=== PATIENT | female | born 1950 | race Hispanic/Latino ===

== ENCOUNTER 2018-01-03 16:27 | Emergency (ER) | payer MEDICARE, OTHER ==
[2018-01-03 18:00] LABS: BASOPHILS % (AUTO) 0.6 % (0.0-5.0); EOSINOPHILS % (AUTO) 3.2 % (0.0-8.0); LYMPHOCYTES % (AUTO) 16.2 % (21.0-51.0); MEAN CORPUSCULAR HEMOGLOBIN 30.2 pg (27.0-33.0); MEAN CORPUSCULAR HGB CONC 33.7 g/dL (32.0-36.0); MEAN CORPUSCULAR VOLUME 89.9 fL (79-99); MONOCYTES % (AUTO) 13.3 % (3.0-13.0); NEUTROPHILS % (AUTO) 66.7 % (40.0-77.0); PLATELET COUNT (AUTO) 230 K/uL (130-400); RED BLOOD CELL COUNT(AUTO) 4.12 MIL/uL (4.00-5.50); RED CELL DISTRIBUTION WIDTH 13.9 % (11.0-15.5); WHITE BLOOD COUNT (AUTO) 4.8 K/uL (4.8-10.8)
[2018-01-03 18:17] LABS: CREATININE 1.1 mg/dL (0.5-1.5); POTASSIUM 4.2 mmol/L (3.5-5.1)
[2018-01-03 18:22] LABS: BILIRUBIN,TOTAL 0.2 mg/dL (0.2-1.0); TOTAL PROTEIN, SERUM 7.1 g/dL (6.0-8.3)
== END 2018-01-03 19:53 | disposition home or self-care (01) ==
LOC: EDH 16:27
DX: E86.0 Dehydration (principal); E11.9 Type 2 diabetes mellitus without complications; I10 Essential (primary) hypertension; F31.9 Bipolar disorder, unspecified; Z88.0 Allergy status to penicillin; Z86.718 Personal history of other venous thrombosis and embolism
CPT/HCPCS: 36415; 80053; 85025; 93005; 96360; 96361

== ENCOUNTER 2018-01-11 18:21 | Inpatient (IN) | payer MEDICARE ==
[~2018-01-11] VITALS: Ht 152.4 cm; Wt 143.2 kg
[2018-01-11 18:41] LABS: BASOPHILS % (AUTO) 0.3 % (0.0-5.0); HEMATOCRIT 40.6 % (36-48); LYMPHOCYTES % (AUTO) 10.6 % (21.0-51.0); MEAN CORPUSCULAR HEMOGLOBIN 30.2 pg (27.0-33.0); MEAN CORPUSCULAR HGB CONC 33.8 g/dL (32.0-36.0); MEAN CORPUSCULAR VOLUME 89.4 fL (79-99); MONOCYTES % (AUTO) 8.4 % (3.0-13.0); NEUTROPHILS % (AUTO) 79.7 % (40.0-77.0); PLATELET COUNT (AUTO) 237 K/uL (130-400); RED BLOOD CELL COUNT(AUTO) 4.54 MIL/uL (4.00-5.50); WHITE BLOOD COUNT (AUTO) 10.5 K/uL (4.8-10.8)
[2018-01-11 18:58] LABS: POTASSIUM 4.1 mmol/L (3.5-5.1)
[2018-01-11 19:02] LABS: ALBUMIN 3.5 g/dL (3.5-5.0); BILIRUBIN,TOTAL 0.6 mg/dL (0.2-1.0); TOTAL PROTEIN, SERUM 7.8 g/dL (6.0-8.3)
[2018-01-11] MEDS ORDERED: SODIUM CHLORIDE 0.9% 1000ML 1,000 ML IV ONE ×2 (19:13→21:31)
[2018-01-11] MEDS ORDERED: ONDANSETRON HCL 4 MG/2 ML VIAL ONE ×2 (19:14→21:30)
[2018-01-11 21:03] LABS: APPEARANCE,URINE Clear (CLEAR); BILIRUBIN,URINE Negative (NEGATIVE); COLOR,URINE Yellow (YELLOW); GLUCOSE, URINE (UA) Negative (NEGATIVE); KETONES,URINE 15 mg/dL (NEGATIVE); LEUKOCYTE ESTERASE ,URINE Trace (NEGATIVE); NITRATE,URINE Negative (NEGATIVE); OCCULT BLOOD,URINE Negative (NEGATIVE); PH,URINE 6.5 (5.0-8.0); PROTEIN,URINE Negative (NEGATIVE)
[2018-01-11 21:24] LABS: BACTERIA,URINE Rare /HPF (None Seen); RBC,URINE 0-1 /HPF (0-1); SQUAMOUS EPITHELIAL CELL,UR Rare /LPF (0-2); WBC,URINE 0-1 /HPF (0-1)
[2018-01-11] MEDS ORDERED: MORPHINE SULFATE 4 MG/1ML SYG ONE (21:31)
[2018-01-12] VITALS (7 sets, daily range): BP systolic 127–159; BP diastolic 60–76
[2018-01-12] MEDS: SODIUM CHLORIDE 0.9% 1000ML 1,000 ML IV SCH ×3 (01:41→21:06)
[2018-01-12] MEDS ORDERED: GLUCAGON 1MG KIT 1 MG ML IM PRN (01:45)
[2018-01-12] MEDS ORDERED: DEXTROSE 50%-WATER 50 ML DISP.SYRIN IV PRN (01:45)
[2018-01-12] MEDS ORDERED: ALBUTEROL SULFATE 0.083% 2.5 MG/3 ML INH IH PRN (01:45)
[2018-01-12] MEDS ORDERED: POTASSIUM CHLORIDE 10% ELIXIR 20 MEQ/15 ML UDCUP PO PRN (01:45)
[2018-01-12] MEDS ORDERED: LIDOCAINE HCL-MPF 1% 2ML VIAL IVP PRN (01:45)
[2018-01-12] MEDS ORDERED: MORPHINE SULFATE 2 MG/ML 1ML SYG IVP PRN (01:45)
[2018-01-12] MEDS ORDERED: MORPHINE SULFATE 4 MG/1ML SYG IVP PRN (01:45)
[2018-01-12] MEDS ORDERED: HYDRALAZINE HCL 20 MG/ML VIAL IV PRN (01:45)
[2018-01-12] MEDS ORDERED: POTASSIUM CHLORIDE 20MEQ/100ML 100 ML IV PRN (01:45)
[2018-01-12] MEDS ORDERED: ACETAMINOPHEN 325 MG TAB PO PRN (01:45)
[2018-01-12] MEDS ORDERED: AMLO10TA2 PO (03:01)
[2018-01-12] MEDS ORDERED: LISI-613 PO (03:01)
[2018-01-12] MEDS ORDERED: DULO60CA63 PO (03:01)
[2018-01-12] MEDS ORDERED: METO25TA6 PO (03:01)
[2018-01-12] MEDS ORDERED: BUPR300T54 PO (03:01)
[2018-01-12] MEDS ORDERED: PROM25TA7 PO (03:01)
[2018-01-12] MEDS ORDERED: ZOLP10TA6 PO (03:01)
[2018-01-12] MEDS ORDERED: PREG300C PO (03:01)
[2018-01-12] MEDS ORDERED: HYDR12.54 PO (03:01)
[2018-01-12] MEDS ORDERED: HYDR50CA50 PO (03:01)
[2018-01-12] MEDS ORDERED: OXCA300T PO (03:01)
[2018-01-12 03:35] LABS: BASOPHILS % (AUTO) 0.1 % (0.0-5.0); EOSINOPHILS % (AUTO) 0.2 % (0.0-8.0); HEMATOCRIT 36.9 % (36-48); LYMPHOCYTES % (AUTO) 9.3 % (21.0-51.0); MEAN CORPUSCULAR HEMOGLOBIN 29.9 pg (27.0-33.0); MEAN CORPUSCULAR HGB CONC 33.3 g/dL (32.0-36.0); MEAN CORPUSCULAR VOLUME 89.8 fL (79-99); NEUTROPHILS % (AUTO) 83.4 % (40.0-77.0); PLATELET COUNT (AUTO) 187 K/uL (130-400); RED BLOOD CELL COUNT(AUTO) 4.11 MIL/uL (4.00-5.50); RED CELL DISTRIBUTION WIDTH 14.1 % (11.0-15.5)
[2018-01-12] MEDS ORDERED: MEPERIDINE-PF 25 MG/ML SYG IV PRN (03:45)
[2018-01-12 03:56] LABS: POTASSIUM 4.4 mmol/L (3.5-5.1)
[2018-01-12] MEDS ORDERED: NOVOLOG (06:15)
[2018-01-12] MEDS ORDERED: INSLAN SQ (06:15)
[2018-01-12] MEDS: INSULIN HUMULIN R 100 UNIT/ML 3ML SQ SCH ×4 (06:30→21:00)
[2018-01-12] MEDS: ENOXAPARIN SODIUM 40 MG/0.4 ML SYRINGE SQ SCH (09:00)
[2018-01-12] MEDS ORDERED: PANTOPRAZOLE 40 MG/VIAL IVP SCH (09:00)
[2018-01-12] MEDS: ONDANSETRON HCL 4 MG/2 ML VIAL IVP PRN ×2 (09:01→23:56)
[2018-01-12] MEDS: FAMOTIDINE/PF 20 MG/2 ML VIAL IV SCH ×2 (09:01→20:38)
[2018-01-12] MEDS ORDERED: DIATR MEGLU/DIATRIZOATE SODIUM 30 ML BOTTLE PO ONE (11:31)
[2018-01-12] MEDS ORDERED: LORAZEPAM 2 MG/ML 1 ML VIAL ONE (23:53)
[2018-01-13] MEDS ORDERED: LORAZEPAM 2 MG/ML 1 ML VIAL IVP PRN
[2018-01-13 02:45] VITALS: BP 159/71
[2018-01-13 05:57] LABS: LYMPHOCYTES % (AUTO) 10.9 % (21.0-51.0); MEAN CORPUSCULAR HGB CONC 33.4 g/dL (32.0-36.0); MEAN CORPUSCULAR VOLUME 89.9 fL (79-99); MONOCYTES % (AUTO) 4.7 % (3.0-13.0); NEUTROPHILS % (AUTO) 83.4 % (40.0-77.0); PLATELET COUNT (AUTO) 152 K/uL (130-400); RED CELL DISTRIBUTION WIDTH 14.3 % (11.0-15.5)
[2018-01-13 06:03] LABS: CREATININE 0.7 mg/dL (0.5-1.5); POTASSIUM 3.8 mmol/L (3.5-5.1)
[2018-01-13] MEDS: INSULIN HUMULIN R 100 UNIT/ML 3ML SQ SCH ×4 (06:06→21:10)
[2018-01-13 07:00] VITALS: BP 135/66
[2018-01-13] MEDS ORDERED: PROMETHAZINE HCL 25 MG TABLET PO PRN (07:15)
[2018-01-13] MEDS ORDERED: HYDROXYZINE HCL 25 MG TABLET PO PRN (07:15)
[2018-01-13] MEDS ORDERED: INSULIN GLARGINE 100 UNITS/ML 10 ML VIAL SQ ONE (08:00)
[2018-01-13] MEDS: OXCARBAZEPINE 300 MG TAB PO SCH (09:08)
[2018-01-13] MEDS: PREGABALIN 100 MG CAPSULE PO SCH ×2 (09:08→21:03)
[2018-01-13] MEDS: DULOXETINE HCL 30 MG CAP PO SCH (09:09)
[2018-01-13] MEDS: HYDROCHLOROTHIAZIDE 25 MG TABLET PO SCH (09:10)
[2018-01-13] MEDS: AMLODIPINE BESYLATE 5 MG TAB PO SCH (09:10)
[2018-01-13] MEDS: LISINOPRIL 20 MG TABLET PO SCH (09:11)
[2018-01-13] MEDS: BUPROPION HCL 150 MG TABLET.SA PO SCH (09:11)
[2018-01-13] MEDS: ENOXAPARIN SODIUM 40 MG/0.4 ML SYRINGE SQ SCH (09:13)
[2018-01-13] MEDS: METOPROLOL TARTRATE 25 MG TAB PO SCH (09:15)
[2018-01-13] MEDS: FAMOTIDINE/PF 20 MG/2 ML VIAL IV SCH ×2 (09:15→21:03)
[2018-01-13 12:43] VITALS: BP 125/55
[2018-01-13 16:00] VITALS: BP 125/55
[2018-01-13 19:45] VITALS: BP 108/60
[2018-01-13] MEDS ORDERED: ZOLPIDEM TARTRATE 5 MG TAB PO SCH (21:00)
[2018-01-14 00:32] VITALS: BP 115/58
[2018-01-14 04:05] VITALS: BP 140/81
[2018-01-14 04:13] LABS: BASOPHILS % (AUTO) 0.4 % (0.0-5.0); HEMATOCRIT 33.5 % (36-48); LYMPHOCYTES % (AUTO) 18.4 % (21.0-51.0); MEAN CORPUSCULAR HEMOGLOBIN 30.8 pg (27.0-33.0); MEAN CORPUSCULAR HGB CONC 34.6 g/dL (32.0-36.0); NEUTROPHILS % (AUTO) 70.2 % (40.0-77.0); PLATELET COUNT (AUTO) 160 K/uL (130-400); RED BLOOD CELL COUNT(AUTO) 3.77 MIL/uL (4.00-5.50); WHITE BLOOD COUNT (AUTO) 6.4 K/uL (4.8-10.8)
[2018-01-14 04:19] LABS: CREATININE 0.8 mg/dL (0.5-1.5); POTASSIUM 3.2 mmol/L (3.5-5.1)
[2018-01-14] MEDS: INSULIN HUMULIN R 100 UNIT/ML 3ML SQ SCH (05:31)
[2018-01-14] MEDS: POTASSIUM CHLORIDE 20 MEQ ERTAB PO PRN ×3 (06:33→10:00)
[2018-01-14 07:30] VITALS: BP 105/59
[2018-01-14] MEDS: METOPROLOL TARTRATE 25 MG TAB PO SCH (08:00)
[2018-01-14] MEDS: PREGABALIN 100 MG CAPSULE PO SCH (08:22)
[2018-01-14] MEDS: OXCARBAZEPINE 300 MG TAB PO SCH (08:23)
[2018-01-14] MEDS: DULOXETINE HCL 30 MG CAP PO SCH (08:23)
[2018-01-14] MEDS: LISINOPRIL 20 MG TABLET PO SCH (08:24)
[2018-01-14] MEDS: AMLODIPINE BESYLATE 5 MG TAB PO SCH (08:24)
[2018-01-14] MEDS: ENOXAPARIN SODIUM 40 MG/0.4 ML SYRINGE SQ SCH (08:24)
[2018-01-14] MEDS: FAMOTIDINE/PF 20 MG/2 ML VIAL IV SCH (08:25)
[2018-01-14] MEDS: HYDROCHLOROTHIAZIDE 25 MG TABLET PO SCH (08:26)
[2018-01-14] MEDS: BUPROPION HCL 150 MG TABLET.SA PO SCH (08:28)
== END 2018-01-14 10:00 | disposition home or self-care (01) | DRG 389 ==
LOC: EDH 18:21 → EDHIP 21:55 → OBSVTOIN 21:55 → 3AH 01-12 01:07
PROVIDERS: ADMIT Family Medicine; ATTEND Family Medicine
PROC: 0D9770Z Drainage of Stomach, Pylorus with Drainage Device, Via Natural or Artificial Opening (ICD-10-PCS; principal; 2018-01-12)
DX: K56.609 Unspecified intestinal obstruction, unspecified as to partial versus complete obstruction (principal); Z68.44 Body mass index [BMI] 60.0-69.9, adult; E66.01 Morbid (severe) obesity due to excess calories; E11.9 Type 2 diabetes mellitus without complications; F31.9 Bipolar disorder, unspecified; D64.9 Anemia, unspecified; E86.0 Dehydration; G51.0 Bell's palsy; I10 Essential (primary) hypertension; Z79.4 Long term (current) use of insulin; Z86.711 Personal history of pulmonary embolism; Z86.718 Personal history of other venous thrombosis and embolism; Z90.710 Acquired absence of both cervix and uterus; Z88.0 Allergy status to penicillin; Z90.49 Acquired absence of other specified parts of digestive tract; Z88.6 Allergy status to analgesic agent
CPT/HCPCS: 36415; 74018; 74176; 80048; 80053; 81001; 82150; 82948; 83690; 85025; 93005; 93970; 94664; A6250; C9113; J1650; J1815; J2060; J2270; J2405; J3490; J7030; Q9963

== ENCOUNTER 2018-06-02 16:37 | Emergency (ER) | payer MEDICARE ==
[~2018-06-02 16:37] MED LIST: AMLO10TA2 PO; BUPR300T54 PO; DULO60CA63 PO; HYDR12.54 PO; HYDR50CA50 PO; INSLAN SQ; LISI-613 PO; METO25TA6 PO; NOVOLOG; OXCA300T PO; PREG300C PO; PROM25TA7 PO; ZOLP10TA6 PO
[2018-06-02] MEDS ORDERED: CLINDAMYCIN 900 MG/D5% WATER 50 ML IV ONE (18:46)
[2018-06-02 18:47] LABS: BASOPHILS % (AUTO) 2.6 % (0.0-5.0); EOSINOPHILS % (AUTO) 3.6 % (0.0-8.0); HEMATOCRIT 35.5 % (36-48); LYMPHOCYTES % (AUTO) 17.6 % (21.0-51.0); MEAN CORPUSCULAR HEMOGLOBIN 30.6 pg (27.0-33.0); MEAN CORPUSCULAR HGB CONC 34.1 g/dL (32.0-36.0); MEAN CORPUSCULAR VOLUME 89.7 fL (79-99); NEUTROPHILS % (AUTO) 63.2 % (40.0-77.0); PLATELET COUNT (AUTO) 220 K/uL (130-400); RED BLOOD CELL COUNT(AUTO) 3.96 MIL/uL (4.00-5.50); RED CELL DISTRIBUTION WIDTH 14.6 % (11.0-15.5); WHITE BLOOD COUNT (AUTO) 4.8 K/uL (4.8-10.8)
[2018-06-02 18:56] LABS: CREATININE 0.9 mg/dL (0.5-1.5)
[2018-06-02 19:02] LABS: ALBUMIN 3.1 g/dL (3.5-5.0); BILIRUBIN,TOTAL 0.3 mg/dL (0.2-1.0)
== END 2018-06-02 20:13 | disposition home or self-care (01) ==
LOC: EDH 16:37
DX: L03.115 Cellulitis of right lower limb (principal); L03.116 Cellulitis of left lower limb; E11.621 Type 2 diabetes mellitus with foot ulcer; R60.0 Localized edema; F31.9 Bipolar disorder, unspecified; I10 Essential (primary) hypertension; E66.01 Morbid (severe) obesity due to excess calories; Z68.44 Body mass index [BMI] 60.0-69.9, adult; Z86.718 Personal history of other venous thrombosis and embolism; Z90.49 Acquired absence of other specified parts of digestive tract; Z90.710 Acquired absence of both cervix and uterus; Z98.890 Other specified postprocedural states; Z88.0 Allergy status to penicillin; Z88.8 Allergy status to other drugs, medicaments and biological substances
CPT/HCPCS: 36415; 80053; 82550; 85025; 87040 ×2; 93970; 96365; 99285; J3490

== ENCOUNTER 2018-08-09 10:39 | Emergency (ER) | payer MEDICARE ==
[~2018-08-09 10:39] MED LIST changes: -AMLO10TA2 PO; +AMLO10TA6 PO; -OXCA300T PO; +OXCA300T28 PO
[2018-08-09 10:57] LABS: APPEARANCE,URINE Clear (CLEAR); BILIRUBIN,URINE Negative (NEGATIVE); COLOR,URINE Yellow (YELLOW); GLUCOSE, URINE (UA) Negative (NEGATIVE); KETONES,URINE 15 mg/dL (NEGATIVE); LEUKOCYTE ESTERASE ,URINE Trace (NEGATIVE); NITRATE,URINE Negative (NEGATIVE); OCCULT BLOOD,URINE Negative (NEGATIVE); PH,URINE >=9.0 (5.0-8.0); PROTEIN,URINE Negative (NEGATIVE)
[2018-08-09 11:12] LABS: BACTERIA,URINE Rare /HPF (None Seen); RBC,URINE 0-1 /HPF (0-1); SQUAMOUS EPITHELIAL CELL,UR Few /HPF (0-2); WBC,URINE 0-1 /HPF (0-1)
[2018-08-09 11:52] LABS: CREATININE 0.8 mg/dL (0.5-1.5); POTASSIUM 3.3 mmol/L (3.5-5.1)
[2018-08-09 11:57] LABS: ALBUMIN 3.1 g/dL (3.5-5.0); BILIRUBIN,TOTAL 0.5 mg/dL (0.2-1.0); TOTAL PROTEIN, SERUM 7.2 g/dL (6.0-8.3)
[2018-08-09] MEDS ORDERED: HYDROCODONE/ACETAMINOPHEN 5/325 MG TAB ONE (12:53)
== END 2018-08-09 13:40 | disposition home or self-care (01) ==
LOC: EDH 10:39
DX: E11.40 Type 2 diabetes mellitus with diabetic neuropathy, unspecified (principal); N30.90 Cystitis, unspecified without hematuria; R19.7 Diarrhea, unspecified; G51.0 Bell's palsy; F31.9 Bipolar disorder, unspecified; I10 Essential (primary) hypertension; E66.01 Morbid (severe) obesity due to excess calories; Z68.44 Body mass index [BMI] 60.0-69.9, adult; Z86.718 Personal history of other venous thrombosis and embolism; Z90.49 Acquired absence of other specified parts of digestive tract; Z90.710 Acquired absence of both cervix and uterus; Z98.890 Other specified postprocedural states; Z88.0 Allergy status to penicillin; Z88.8 Allergy status to other drugs, medicaments and biological substances; Z79.899 Other long term (current) drug therapy
CPT/HCPCS: 36415; 80053; 81001; 83690

== ENCOUNTER 2018-09-25 02:58 | Inpatient (IN) | payer MEDICARE ==
[~2018-09-25] VITALS: Ht 152.4 cm; Wt 148.3 kg
[2018-09-25] MEDS ORDERED: MORPHINE SULFATE 2 MG/ML 1ML SYG ONE ×2 (03:12→06:30)
[2018-09-25 05:34] LABS: BASOPHILS % (AUTO) 0.4 % (0.0-5.0); EOSINOPHILS % (AUTO) 1.6 % (0.0-8.0); HEMATOCRIT 33.6 % (36-48); LYMPHOCYTES % (AUTO) 9.7 % (21.0-51.0); MEAN CORPUSCULAR HEMOGLOBIN 28.9 pg (27.0-33.0); MEAN CORPUSCULAR HGB CONC 33.4 g/dL (32.0-36.0); MEAN CORPUSCULAR VOLUME 86.5 fL (79-99); MONOCYTES % (AUTO) 9.6 % (3.0-13.0); NEUTROPHILS % (AUTO) 78.7 % (40.0-77.0); PLATELET COUNT (AUTO) 176 K/uL (130-400); RED BLOOD CELL COUNT(AUTO) 3.88 MIL/uL (4.00-5.50); RED CELL DISTRIBUTION WIDTH 14.4 % (11.0-15.5)
[2018-09-25 05:48] LABS: ALBUMIN 3.1 g/dL (3.5-5.0); BILIRUBIN,TOTAL 0.4 mg/dL (0.2-1.0); CREATININE 0.9 mg/dL (0.5-1.5)
[2018-09-25 05:51] LABS: INR 1.02 (0.85-1.15); PARTIAL THROMBOPLASTIN TIME 31.5 SEC (26.3-35.5); PROTHROMBIN TIME 10.7 SEC (9.6-11.6)
[2018-09-25 05:55] LABS: B-TYPE NATRIURETIC PEPTIDE 59 pg/mL (0-100)
[2018-09-25 06:03] LABS: APPEARANCE,URINE Clear (CLEAR); BILIRUBIN,URINE Negative (NEGATIVE); COLOR,URINE Yellow (YELLOW); GLUCOSE, URINE (UA) Negative (NEGATIVE); KETONES,URINE Negative (NEGATIVE); LEUKOCYTE ESTERASE ,URINE Negative (NEGATIVE); NITRATE,URINE Negative (NEGATIVE); OCCULT BLOOD,URINE Negative (NEGATIVE); PH,URINE 7.5 (5.0-8.0); PROTEIN,URINE Negative (NEGATIVE)
[2018-09-25] MEDS ORDERED: ONDANSETRON HCL 4 MG/2 ML VIAL IV PRN (07:00)
[2018-09-25] MEDS ORDERED: LIDOCAINE HCL-MPF 1% 2ML VIAL IVP PRN ×2 (07:00→16:15)
[2018-09-25] MEDS: CLINDAMYCIN 600 MG/D5% WATER 50 ML IV SCH ×3 (07:00→20:39)
[2018-09-25] MEDS ORDERED: POTASSIUM CHLORIDE 20MEQ/100ML 100 ML IV PRN ×2 (07:00→16:15)
[2018-09-25] MEDS ORDERED: IPRATROPIUM/ALBUTEROL SULFATE 3 ML SOLUTION IH PRN (07:30)
[2018-09-25] MEDS ORDERED: ONDANSETRON HCL 4 MG/2 ML VIAL ONE (07:34)
[2018-09-25] MEDS ORDERED: POTASSIUM CHLORIDE 10% ELIXIR 20 MEQ/15 ML UDCUP ONE ×2 (07:34→09:41)
[2018-09-25] MEDS: ENOXAPARIN SODIUM 40 MG/0.4 ML SYRINGE SQ SCH (09:00)
[2018-09-25] MEDS: PANTOPRAZOLE SODIUM 40 MG TABLET.DR PO SCH (09:00)
[2018-09-25] MEDS ORDERED: ENOXAPARIN SODIUM 40 MG/0.4 ML SYRINGE SQ ONE (09:42)
[2018-09-25] MEDS ORDERED: CLINDAMYCIN 600 MG/D5% WATER 50 ML IV ONE (09:42)
[2018-09-25] MEDS ORDERED: PANTOPRAZOLE SODIUM 40 MG TABLET.DR PO ONE (09:42)
[2018-09-25] MEDS: MORPHINE SULFATE 2 MG/ML 1ML SYG IV PRN ×3 (11:15→20:40)
[2018-09-25] MEDS: INSULIN HUMULIN R 100 UNIT/ML 3ML SQ SCH ×3 (11:30→21:00)
[2018-09-25] MEDS: FUROSEMIDE 10 MG/ML 2ML VIAL IV SCH ×2 (12:11→20:39)
[2018-09-25] MEDS: POTASSIUM CHLORIDE 10% ELIXIR 20 MEQ/15 ML UDCUP PO PRN (12:12)
[2018-09-25 12:24] VITALS: BP 116/63
[2018-09-25] MEDS ORDERED: LIDOCAINE HCL-MPF 1% 5ML AMP IJ PRN (13:15)
[2018-09-25 16:28] VITALS: BP 118/55
[2018-09-25] MEDS: ACETAMINOPHEN 325 MG TAB PO PRN (17:24)
[2018-09-25 20:00] VITALS: BP 106/50
[2018-09-25] MEDS ORDERED: FENTANYL 50 MCG/HR PATCH TD SCH (22:45)
[2018-09-25] MEDS ORDERED: AMLO5TAB7 PO (23:30)
[2018-09-25] MEDS ORDERED: METO25TA6 PO (23:30)
[2018-09-25] MEDS ORDERED: FURO20TA4 PO (23:30)
[2018-09-25] MEDS ORDERED: PREG300C PO (23:30)
[2018-09-25] MEDS ORDERED: TRAM50TA4 PO (23:30)
[2018-09-25] MEDS ORDERED: SERT50TA12 PO (23:30)
[2018-09-25] MEDS ORDERED: OXCA150T27 PO (23:30)
[2018-09-25] MEDS ORDERED: DICY10CA13 PO (23:30)
[2018-09-25] MEDS ORDERED: TRAZ-185 PO (23:30)
[2018-09-25] MEDS ORDERED: HYDR50CA50 PO (23:30)
[2018-09-25] MEDS ORDERED: RAME8TAB8 PO (23:30)
[2018-09-25] MEDS ORDERED: HYDR25TA PO (23:30)
[2018-09-25 23:46] VITALS: BP 114/49
[2018-09-26] MEDS: CLINDAMYCIN 600 MG/D5% WATER 50 ML IV SCH ×4 (02:26→18:26)
[2018-09-26 04:47] VITALS: BP 145/67
[2018-09-26 04:54] LABS: BASOPHILS % (AUTO) 0.7 % (0.0-5.0); EOSINOPHILS % (AUTO) 3.7 % (0.0-8.0); HEMATOCRIT 34.3 % (36-48); LYMPHOCYTES % (AUTO) 12.7 % (21.0-51.0); MEAN CORPUSCULAR HEMOGLOBIN 28.8 pg (27.0-33.0); MEAN CORPUSCULAR HGB CONC 33.1 g/dL (32.0-36.0); MONOCYTES % (AUTO) 12.1 % (3.0-13.0); NEUTROPHILS % (AUTO) 70.8 % (40.0-77.0); NUCLEATED RED BLOOD CELLS 0.1 % (0.0-0.19); PLATELET COUNT (AUTO) 163 K/uL (130-400); RED BLOOD CELL COUNT(AUTO) 3.94 MIL/uL (4.00-5.50); RED CELL DISTRIBUTION WIDTH 14.9 % (11.0-15.5); WHITE BLOOD COUNT (AUTO) 5.3 K/uL (4.8-10.8)
[2018-09-26 05:01] LABS: HEMOGLOBIN A1C 7.3 % (4.0-6.0)
[2018-09-26 05:04] LABS: CREATININE 0.9 mg/dL (0.5-1.5); POTASSIUM 3.5 mmol/L (3.5-5.1)
[2018-09-26] MEDS: FUROSEMIDE 10 MG/ML 2ML VIAL IV SCH ×2 (06:57→18:26)
[2018-09-26] MEDS: POTASSIUM CHLORIDE 20 MEQ ERTAB PO PRN ×2 (06:58→13:35)
[2018-09-26] MEDS: ACETAMINOPHEN 325 MG TAB PO PRN (06:59)
[2018-09-26] MEDS: INSULIN HUMULIN R 100 UNIT/ML 3ML SQ SCH ×4 (06:59→21:00)
[2018-09-26 07:57] VITALS: BP 134/65
[2018-09-26] MEDS: PANTOPRAZOLE SODIUM 40 MG TABLET.DR PO SCH (09:18)
[2018-09-26] MEDS: ENOXAPARIN SODIUM 40 MG/0.4 ML SYRINGE SQ SCH (09:18)
[2018-09-26] MEDS ORDERED: TRAMADOL HCL 50 MG TABLET PO PRN (10:45)
[2018-09-26] MEDS ORDERED: DICYCLOMINE HCL 20 MG TAB PO PRN (10:45)
[2018-09-26 11:31] VITALS: BP 136/64
[2018-09-26] MEDS: HYDROXYZINE HCL 25 MG TABLET PO PRN ×2 (12:39→18:26)
[2018-09-26] MEDS: HYDROCODONE/ACETAMINOPHEN 5/325 MG TAB PO PRN ×3 (13:33→21:28)
[2018-09-26 17:00] VITALS: BP 126/81
[2018-09-26] MEDS: PREGABALIN 100 MG CAPSULE PO SCH (19:58)
[2018-09-26] MEDS: OXCARBAZEPINE 300 MG TAB PO SCH (19:59)
[2018-09-26 20:08] VITALS: BP 131/52
[2018-09-26] MEDS ORDERED: TRAZODONE HCL 50 MG TAB PO SCH (21:00)
[2018-09-27] MEDS: CLINDAMYCIN 600 MG/D5% WATER 50 ML IV SCH ×3 (00:08→11:54)
[2018-09-27 00:16] VITALS: BP 145/58
[2018-09-27] MEDS: MORPHINE SULFATE 2 MG/ML 1ML SYG IV PRN (04:15)
[2018-09-27 04:47] LABS: HEMATOCRIT 35.7 % (36-48); MEAN CORPUSCULAR HEMOGLOBIN 28.4 pg (27.0-33.0); MEAN CORPUSCULAR HGB CONC 32.5 g/dL (32.0-36.0); MEAN CORPUSCULAR VOLUME 87.6 fL (79-99); NUCLEATED RED BLOOD CELLS 0.1 % (0.0-0.19); PLATELET COUNT (AUTO) 157 K/uL (130-400); RED BLOOD CELL COUNT(AUTO) 4.08 MIL/uL (4.00-5.50); RED CELL DISTRIBUTION WIDTH 14.7 % (11.0-15.5); WHITE BLOOD COUNT (AUTO) 5.8 K/uL (4.8-10.8)
[2018-09-27 04:59] VITALS: BP 132/52
[2018-09-27 05:00] LABS: CREATININE 0.8 mg/dL (0.5-1.5); POTASSIUM 3.6 mmol/L (3.5-5.1)
[2018-09-27] MEDS: INSULIN HUMULIN R 100 UNIT/ML 3ML SQ SCH ×3 (05:57→16:29)
[2018-09-27] MEDS: FUROSEMIDE 10 MG/ML 2ML VIAL IV SCH (06:02)
[2018-09-27 08:30] VITALS: BP 149/73
[2018-09-27] MEDS: ENOXAPARIN SODIUM 40 MG/0.4 ML SYRINGE SQ SCH (08:34)
[2018-09-27] MEDS: PANTOPRAZOLE SODIUM 40 MG TABLET.DR PO SCH (08:34)
[2018-09-27] MEDS: HYDROCODONE/ACETAMINOPHEN 5/325 MG TAB PO PRN ×2 (08:35→16:29)
[2018-09-27] MEDS: PREGABALIN 100 MG CAPSULE PO SCH (08:35)
[2018-09-27] MEDS: OXCARBAZEPINE 300 MG TAB PO SCH (08:38)
[2018-09-27] MEDS ORDERED: SERTRALINE HCL 50 MG TABLET PO SCH (09:00)
[2018-09-27] MEDS ORDERED: HYDROCHLOROTHIAZIDE 25 MG TABLET PO SCH (09:00)
[2018-09-27] MEDS ORDERED: AMLODIPINE BESYLATE 5 MG TAB PO SCH (09:00)
[2018-09-27] MEDS ORDERED: METOPROLOL TARTRATE 25 MG TAB PO SCH (09:00)
[2018-09-27] MEDS ORDERED: FUROSEMIDE 20 MG TABLET PO SCH (09:00)
[2018-09-27 11:20] VITALS: BP 112/43
[2018-09-27] MEDS: POTASSIUM CHLORIDE 20 MEQ ERTAB PO PRN ×2 (11:55→16:32)
[2018-09-27] MEDS ORDERED: CLIN300C9 PO (13:04)
[2018-09-27 16:28] VITALS: BP 131/51
[2018-09-27] MEDS: HYDROXYZINE HCL 25 MG TABLET PO PRN (18:25)
== END 2018-09-27 19:23 | DRG 563 ==
LOC: EDH 02:58 → EDHIP 06:46 → 4AH 10:16
PROVIDERS: ADMIT Hospitalist; ATTEND Hospitalist
DX: S92.001A Unspecified fracture of right calcaneus, initial encounter for closed fracture (principal); L03.115 Cellulitis of right lower limb; Z68.44 Body mass index [BMI] 60.0-69.9, adult; L03.116 Cellulitis of left lower limb; E66.01 Morbid (severe) obesity due to excess calories; E87.6 Hypokalemia; E11.9 Type 2 diabetes mellitus without complications; M19.90 Unspecified osteoarthritis, unspecified site; I11.0 Hypertensive heart disease with heart failure; I50.9 Heart failure, unspecified; G47.00 Insomnia, unspecified; E78.5 Hyperlipidemia, unspecified; F31.9 Bipolar disorder, unspecified; Z96.651 Presence of right artificial knee joint; W19.XXXA Unspecified fall, initial encounter; Y92.098 Other place in other non-institutional residence as the place of occurrence of the external cause; Y93.89 Activity, other specified; Y99.8 Other external cause status; Z85.42 Personal history of malignant neoplasm of other parts of uterus; Z86.711 Personal history of pulmonary embolism; Z86.718 Personal history of other venous thrombosis and embolism; Z90.710 Acquired absence of both cervix and uterus; Z99.3 Dependence on wheelchair; Z88.0 Allergy status to penicillin; Z88.8 Allergy status to other drugs, medicaments and biological substances
CPT/HCPCS: 36415; 73610; 73700; 80048; 80053; 81003; 82948; 83036; 83880; 85025; 85027; 85610; 85730; 87070; 87076; 93970; 94664; 97039; J1650; J1815; J1940; J2405; J3480; J3490

== ENCOUNTER 2018-11-09 09:47 | Inpatient (IN) | payer MEDICARE ==
[~2018-11-09] VITALS: Ht 152.4 cm; Wt 135.0 kg
[~2018-11-09 09:47] MED LIST changes: -AMLO10TA6 PO; +AMLO5TAB7 PO; -BUPR300T54 PO; +CLIN300C9 PO; +DICY10CA13 PO; -DULO60CA63 PO; +FURO20TA4 PO; -HYDR12.54 PO; +HYDR25TA PO; -INSLAN SQ; -LISI-613 PO; -NOVOLOG; +OXCA150T27 PO; -OXCA300T28 PO; -PROM25TA7 PO; +RAME8TAB8 PO; +SERT50TA12 PO; +TRAZ-185 PO; -ZOLP10TA6 PO
[2018-11-09 10:45] LABS: BASOPHILS % (AUTO) 0.5 % (0.0-5.0); EOSINOPHILS % (AUTO) 4.4 % (0.0-8.0); HEMATOCRIT 35.1 % (36-48); LYMPHOCYTES % (AUTO) 17.3 % (21.0-51.0); MEAN CORPUSCULAR HEMOGLOBIN 28.2 pg (27.0-33.0); MEAN CORPUSCULAR HGB CONC 32.5 g/dL (32.0-36.0); MEAN CORPUSCULAR VOLUME 86.6 fL (79-99); MONOCYTES % (AUTO) 16.6 % (3.0-13.0); NEUTROPHILS % (AUTO) 61.2 % (40.0-77.0); NUCLEATED RED BLOOD CELLS 0.1 % (0.0-0.19); PLATELET COUNT (AUTO) 201 K/uL (130-400); RED BLOOD CELL COUNT(AUTO) 4.06 MIL/uL (4.00-5.50); RED CELL DISTRIBUTION WIDTH 14.7 % (11.0-15.5); WHITE BLOOD COUNT (AUTO) 4.3 K/uL (4.8-10.8)
[2018-11-09] MEDS ORDERED: SODIUM CHLORIDE 0.9% 100 ML IV ONE (10:52)
[2018-11-09] MEDS ORDERED: CEFTRIAXONE SODIUM 1 GM ONE (10:52)
[2018-11-09 10:55] LABS: INR 1.05 (0.85-1.15); PARTIAL THROMBOPLASTIN TIME 32.6 SEC (26.3-35.5)
[2018-11-09 10:56] LABS: APPEARANCE,URINE CLOUDY (CLEAR); BILIRUBIN,URINE NEGATIVE (NEGATIVE); COLOR,URINE YELLOW (YELLOW); GLUCOSE, URINE (UA) NEGATIVE (NEGATIVE); KETONES,URINE NEGATIVE (NEGATIVE); LEUKOCYTE ESTERASE ,URINE LARGE (NEGATIVE); NITRATE,URINE POSITIVE (NEGATIVE); OCCULT BLOOD,URINE LARGE (NEGATIVE); PH,URINE 5.5 (5.0-8.0); PROTEIN,URINE NEGATIVE (NEGATIVE); UROBILINOGEN,URINE 0.2 mg/dL (0.2-1.0)
[2018-11-09 11:02] LABS: ALBUMIN 3.3 g/dL (3.5-5.0); BILIRUBIN,TOTAL 0.6 mg/dL (0.2-1.0); CREATININE 1.4 mg/dL (0.5-1.5); TOTAL PROTEIN, SERUM 7.7 g/dL (6.0-8.3)
[2018-11-09 11:03] LABS: POTASSIUM 2.5 mmol/L (3.5-5.1)
[2018-11-09 11:15] LABS: BACTERIA,URINE Moderate /HPF (None Seen); SQUAMOUS EPITHELIAL CELL,UR Rare /HPF (0-2); WBC,URINE TNTC /HPF (0-1)
[2018-11-09] MEDS ORDERED: POTASSIUM CHLORIDE 20 MEQ ERTAB PO ONE ×2 (11:43→13:41)
[2018-11-09] MEDS ORDERED: LIDOCAINE HCL-MPF 1% 2ML VIAL IVP PRN (16:15)
[2018-11-09] MEDS ORDERED: DEXTROSE 50%-WATER 50 ML DISP.SYRIN IV PRN (16:15)
[2018-11-09] MEDS ORDERED: POTASSIUM CHLORIDE 10% ELIXIR 20 MEQ/15 ML UDCUP PO PRN (16:15)
[2018-11-09] MEDS ORDERED: ACETAMINOPHEN 325 MG TAB PO PRN (16:15)
[2018-11-09] MEDS ORDERED: ONDANSETRON HCL 4 MG/2 ML VIAL IV PRN (16:15)
[2018-11-09] MEDS ORDERED: GLUCAGON 1MG KIT 1 MG ML IM PRN (16:15)
[2018-11-09] MEDS ORDERED: DICYCLOMINE HCL 20 MG TAB PO PRN (16:15)
[2018-11-09] MEDS: CEFTRIAXONE SODIUM 1 GM IV SCH (16:15)
[2018-11-09] MEDS ORDERED: POTASSIUM CHLORIDE 20MEQ/100ML 100 ML IV PRN (16:15)
[2018-11-09] MEDS ORDERED: HYDRALAZINE HCL 20 MG/ML VIAL IV PRN (16:15)
[2018-11-09] MEDS ORDERED: POTASSIUM CHLORIDE 20MEQ/100ML 100 ML IV ONE (16:16)
[2018-11-09] MEDS ORDERED: HYDROXYZINE PAMOATE 50 MG PO PRN (16:30)
[2018-11-09] MEDS ORDERED: ENOXAPARIN SODIUM 30 MG/0.3 ML SQ ONE (18:33)
[2018-11-09 19:56] VITALS: BP 125/65
[2018-11-09] MEDS: INSULIN HUMULIN R 100 UNIT/ML 3ML SQ SCH (20:58)
[2018-11-09] MEDS: OXCARBAZEPINE 150 MG PO SCH (21:00)
[2018-11-09] MEDS: FAMOTIDINE/PF 20 MG/2 ML VIAL IV SCH (21:06)
[2018-11-09] MEDS: PREGABALIN 100 MG CAPSULE PO SCH (21:06)
[2018-11-09] MEDS: TRAZODONE HCL 50 MG TAB PO SCH (21:07)
[2018-11-09 23:51] VITALS: BP 110/51
[2018-11-10 04:14] VITALS: BP 111/45
[2018-11-10 04:15] LABS: HEMATOCRIT 34.4 % (36-48); MEAN CORPUSCULAR HEMOGLOBIN 29.3 pg (27.0-33.0); MEAN CORPUSCULAR HGB CONC 33.7 g/dL (32.0-36.0); MEAN CORPUSCULAR VOLUME 86.9 fL (79-99); NUCLEATED RED BLOOD CELLS 0.1 % (0.0-0.19); PLATELET COUNT (AUTO) 224 K/uL (130-400); RED BLOOD CELL COUNT(AUTO) 3.96 MIL/uL (4.00-5.50); RED CELL DISTRIBUTION WIDTH 15.3 % (11.0-15.5); WHITE BLOOD COUNT (AUTO) 4.9 K/uL (4.8-10.8)
[2018-11-10 04:37] LABS: CREATININE 1.1 mg/dL (0.5-1.5)
[2018-11-10 04:41] LABS: POTASSIUM 2.8 mmol/L (3.5-5.1)
[2018-11-10] MEDS: POTASSIUM CHLORIDE 20 MEQ ERTAB PO PRN ×3 (05:06→17:36)
[2018-11-10] MEDS: INSULIN HUMULIN R 100 UNIT/ML 3ML SQ SCH ×4 (05:26→21:00)
[2018-11-10 07:51] VITALS: BP 110/47
[2018-11-10] MEDS: OXCARBAZEPINE 150 MG PO SCH ×2 (09:00→21:00)
[2018-11-10] MEDS: METOPROLOL TARTRATE 25 MG TAB PO SCH (09:49)
[2018-11-10] MEDS: AMLODIPINE BESYLATE 5 MG TAB PO SCH (09:49)
[2018-11-10] MEDS: PREGABALIN 100 MG CAPSULE PO SCH ×2 (09:49→20:59)
[2018-11-10] MEDS: FAMOTIDINE/PF 20 MG/2 ML VIAL IV SCH ×2 (09:49→20:59)
[2018-11-10] MEDS: ENOXAPARIN SODIUM 30 MG/0.3 ML SQ SCH (09:50)
[2018-11-10 11:00] VITALS: BP 106/51
[2018-11-10] MEDS ORDERED: SODIUM CHLORIDE 0.9% 1000ML 1,000 ML IV ONE (11:30)
[2018-11-10] MEDS: CEFTRIAXONE SODIUM 1 GM IV SCH (14:48)
[2018-11-10] MEDS: AMILORIDE HCL 5 MG TABLET PO SCH (14:48)
[2018-11-10 16:00] VITALS: BP 124/58
[2018-11-10] MEDS: MORPHINE SULFATE 2 MG/ML 1ML SYG IV PRN (17:36)
[2018-11-10 18:15] LABS: MAGNESIUM 1.8 mg/dL (1.80-2.40); POTASSIUM 3.3 mmol/L (3.5-5.1)
[2018-11-10 19:00] VITALS: BP 110/59
[2018-11-10] MEDS: TRAZODONE HCL 50 MG TAB PO SCH (21:00)
[2018-11-11] VITALS (7 sets, daily range): BP systolic 120–159; BP diastolic 55–78
[2018-11-11] MEDS: D5W-1/2 NS/20MEQ KCL 1,000 ML IV SCH ×4 (01:31→16:52)
[2018-11-11 04:24] LABS: HEMATOCRIT 35.4 % (36-48); MEAN CORPUSCULAR HEMOGLOBIN 28.6 pg (27.0-33.0); MEAN CORPUSCULAR HGB CONC 32.7 g/dL (32.0-36.0); MEAN CORPUSCULAR VOLUME 87.6 fL (79-99); NUCLEATED RED BLOOD CELLS 0.1 % (0.0-0.19); PLATELET COUNT (AUTO) 198 K/uL (130-400); RED BLOOD CELL COUNT(AUTO) 4.04 MIL/uL (4.00-5.50); RED CELL DISTRIBUTION WIDTH 15.4 % (11.0-15.5); WHITE BLOOD COUNT (AUTO) 4.5 K/uL (4.8-10.8)
[2018-11-11 04:43] LABS: CREATININE 0.9 mg/dL (0.5-1.5); MAGNESIUM 1.8 mg/dL (1.80-2.40); POTASSIUM 3.3 mmol/L (3.5-5.1)
[2018-11-11] MEDS: INSULIN HUMULIN R 100 UNIT/ML 3ML SQ SCH ×4 (06:21→21:47)
[2018-11-11] MEDS: AMILORIDE HCL 5 MG TABLET PO SCH (08:32)
[2018-11-11] MEDS: FAMOTIDINE/PF 20 MG/2 ML VIAL IV SCH ×2 (08:32→21:30)
[2018-11-11] MEDS: METOPROLOL TARTRATE 25 MG TAB PO SCH (08:32)
[2018-11-11] MEDS: PREGABALIN 100 MG CAPSULE PO SCH ×2 (08:32→21:30)
[2018-11-11] MEDS: ENOXAPARIN SODIUM 30 MG/0.3 ML SQ SCH (08:34)
[2018-11-11] MEDS: OXCARBAZEPINE 150 MG PO SCH ×2 (08:36→21:00)
[2018-11-11] MEDS: AMLODIPINE BESYLATE 5 MG TAB PO SCH (08:45)
[2018-11-11] MEDS: MORPHINE SULFATE 2 MG/ML 1ML SYG IV PRN ×2 (08:46→15:53)
[2018-11-11] MEDS: POTASSIUM CHLORIDE 20 MEQ ERTAB PO PRN ×2 (08:46→16:47)
[2018-11-11] MEDS ORDERED: MAGNESIUM 2GM PREMIX 50ML 50 ML IV PRN (11:15)
[2018-11-11] MEDS: MEROPENEM 1 GM VIAL IVP SCH ×2 (13:06→21:33)
[2018-11-11 13:15] LABS: INR 1.02 (0.85-1.15); PROTHROMBIN TIME 10.7 SEC (9.6-11.6)
[2018-11-11] MEDS: TRAZODONE HCL 50 MG TAB PO SCH (21:30)
[2018-11-12] MEDS: D5W-1/2 NS/20MEQ KCL 1,000 ML IV SCH ×2 (02:23→23:31)
[2018-11-12 04:00] VITALS: BP 128/60
[2018-11-12] MEDS: MEROPENEM 1 GM VIAL IVP SCH ×3 (04:12→18:31)
[2018-11-12 05:09] LABS: BASOPHILS % (AUTO) 0.6 % (0.0-5.0); EOSINOPHILS % (AUTO) 4.9 % (0.0-8.0); LYMPHOCYTES % (AUTO) 18.8 % (21.0-51.0); MEAN CORPUSCULAR HEMOGLOBIN 29.2 pg (27.0-33.0); MEAN CORPUSCULAR HGB CONC 33.5 g/dL (32.0-36.0); MEAN CORPUSCULAR VOLUME 87.1 fL (79-99); MONOCYTES % (AUTO) 16.9 % (3.0-13.0); NEUTROPHILS % (AUTO) 58.8 % (40.0-77.0); PLATELET COUNT (AUTO) 203 K/uL (130-400); RED BLOOD CELL COUNT(AUTO) 4.01 MIL/uL (4.00-5.50); RED CELL DISTRIBUTION WIDTH 15.3 % (11.0-15.5)
[2018-11-12 05:17] LABS: CREATININE 0.8 mg/dL (0.5-1.5); POTASSIUM 3.8 mmol/L (3.5-5.1)
[2018-11-12] MEDS: INSULIN HUMULIN R 100 UNIT/ML 3ML SQ SCH ×3 (06:12→16:30)
[2018-11-12 08:00] VITALS: BP 121/58
[2018-11-12] MEDS: PREGABALIN 100 MG CAPSULE PO SCH ×2 (08:22→23:18)
[2018-11-12] MEDS: AMLODIPINE BESYLATE 5 MG TAB PO SCH (08:22)
[2018-11-12] MEDS: SERTRALINE HCL 50 MG TABLET PO SCH (08:22)
[2018-11-12] MEDS: METOPROLOL TARTRATE 25 MG TAB PO SCH (08:22)
[2018-11-12] MEDS: FAMOTIDINE/PF 20 MG/2 ML VIAL IV SCH ×2 (08:23→23:18)
[2018-11-12] MEDS: ENOXAPARIN SODIUM 30 MG/0.3 ML SQ SCH (08:23)
[2018-11-12] MEDS: OXCARBAZEPINE 150 MG PO SCH ×2 (08:33→23:18)
[2018-11-12 12:00] VITALS: BP 122/72
[2018-11-12] MEDS: AMILORIDE HCL 5 MG TABLET PO SCH (13:24)
[2018-11-12 16:00] VITALS: BP 117/59
[2018-11-12] MEDS: POLYETHYLENE GLYCOL 3350 17 GM POWD.PACK PO PRN (18:31)
[2018-11-12 19:58] VITALS: BP 134/50
[2018-11-12] MEDS: TRAZODONE HCL 50 MG TAB PO SCH (23:22)
[2018-11-12 23:57] VITALS: BP 142/83
[2018-11-13] MEDS: POLYETHYLENE GLYCOL 3350 17 GM POWD.PACK PO PRN ×2 (01:22→09:25)
[2018-11-13] MEDS: INSULIN HUMULIN R 100 UNIT/ML 3ML SQ SCH ×5 (01:37→21:13)
[2018-11-13] MEDS ORDERED: MORPHINE SULFATE 4 MG/1ML SYG ONE ×2 (01:43→17:22)
[2018-11-13] MEDS: MEROPENEM 1 GM VIAL IVP SCH ×3 (03:15→20:25)
[2018-11-13 04:00] VITALS: BP 125/71
[2018-11-13 08:10] VITALS: BP 149/84
[2018-11-13] MEDS: PREGABALIN 100 MG CAPSULE PO SCH ×2 (09:23→20:25)
[2018-11-13] MEDS: METOPROLOL TARTRATE 25 MG TAB PO SCH (09:23)
[2018-11-13] MEDS: AMLODIPINE BESYLATE 5 MG TAB PO SCH (09:23)
[2018-11-13] MEDS: AMILORIDE HCL 5 MG TABLET PO SCH (09:23)
[2018-11-13] MEDS: SERTRALINE HCL 50 MG TABLET PO SCH (09:23)
[2018-11-13] MEDS: FAMOTIDINE/PF 20 MG/2 ML VIAL IV SCH ×2 (09:23→20:25)
[2018-11-13] MEDS: ENOXAPARIN SODIUM 30 MG/0.3 ML SQ SCH (09:24)
[2018-11-13] MEDS: OXCARBAZEPINE 150 MG PO SCH ×2 (09:33→20:26)
[2018-11-13] MEDS: D5W-1/2 NS/20MEQ KCL 1,000 ML IV SCH ×2 (09:34→17:36)
[2018-11-13 10:54] VITALS: BP 119/61
[2018-11-13] MEDS ORDERED: AMIL5TAB8 PO (11:26)
[2018-11-13] MEDS: HYDROXYZINE HCL 25 MG TABLET PO PRN (11:26)
[2018-11-13 16:28] VITALS: BP 132/56
[2018-11-13 19:46] VITALS: BP 126/82
[2018-11-13] MEDS: TRAZODONE HCL 50 MG TAB PO SCH (20:25)
[2018-11-13 23:37] VITALS: BP 113/54
[2018-11-14] MEDS: D5W-1/2 NS/20MEQ KCL 1,000 ML IV SCH ×4 (01:05→17:31)
[2018-11-14] MEDS: MEROPENEM 1 GM VIAL IVP SCH ×3 (03:31→20:43)
[2018-11-14 04:00] VITALS: BP 143/78
[2018-11-14] MEDS: INSULIN HUMULIN R 100 UNIT/ML 3ML SQ SCH ×4 (05:57→20:27)
[2018-11-14 07:30] VITALS: BP 141/87
[2018-11-14] MEDS ORDERED: MORPHINE SULFATE 4 MG/1ML SYG ONE (07:47)
[2018-11-14] MEDS ORDERED: MORPHINE SULFATE 4 MG/1ML SYG IVP PRN (08:30)
[2018-11-14] MEDS: FAMOTIDINE/PF 20 MG/2 ML VIAL IV SCH ×2 (09:53→20:43)
[2018-11-14] MEDS: AMILORIDE HCL 5 MG TABLET PO SCH (09:53)
[2018-11-14] MEDS: METOPROLOL TARTRATE 25 MG TAB PO SCH (09:53)
[2018-11-14] MEDS: AMLODIPINE BESYLATE 5 MG TAB PO SCH (09:53)
[2018-11-14] MEDS: SERTRALINE HCL 50 MG TABLET PO SCH (09:53)
[2018-11-14] MEDS: ENOXAPARIN SODIUM 30 MG/0.3 ML SQ SCH (09:53)
[2018-11-14] MEDS: PREGABALIN 100 MG CAPSULE PO SCH ×2 (09:53→20:43)
[2018-11-14] MEDS: OXCARBAZEPINE 150 MG PO SCH ×2 (09:54→20:44)
[2018-11-14] MEDS: HYDROXYZINE HCL 25 MG TABLET PO PRN ×3 (09:56→22:51)
[2018-11-14 11:00] VITALS: BP 127/77
[2018-11-14 14:25] LABS: BASOPHILS % (AUTO) 0.7 % (0.0-5.0); EOSINOPHILS % (AUTO) 3.6 % (0.0-8.0); HEMATOCRIT 39.1 % (36-48); LYMPHOCYTES % (AUTO) 19.4 % (21.0-51.0); MEAN CORPUSCULAR HEMOGLOBIN 28.9 pg (27.0-33.0); MEAN CORPUSCULAR HGB CONC 32.7 g/dL (32.0-36.0); MEAN CORPUSCULAR VOLUME 88.2 fL (79-99); MONOCYTES % (AUTO) 15.7 % (3.0-13.0); NEUTROPHILS % (AUTO) 60.6 % (40.0-77.0); NUCLEATED RED BLOOD CELLS 0.1 % (0.0-0.19); PLATELET COUNT (AUTO) 199 K/uL (130-400); RED BLOOD CELL COUNT(AUTO) 4.44 MIL/uL (4.00-5.50); RED CELL DISTRIBUTION WIDTH 15.6 % (11.0-15.5)
[2018-11-14 14:46] LABS: POTASSIUM 5.2 mmol/L (3.5-5.1)
[2018-11-14 16:00] VITALS: BP 135/55
[2018-11-14] MEDS ORDERED: SODIUM POLYSTYRENE SULFONATE 15 GM/60 ML ML PO SCH (17:00)
[2018-11-14 19:40] VITALS: BP 158/77
[2018-11-14] MEDS: TRAZODONE HCL 50 MG TAB PO SCH (20:43)
[2018-11-14 23:25] VITALS: BP 140/70
[2018-11-15 03:30] VITALS: BP 134/60
[2018-11-15] MEDS: MEROPENEM 1 GM VIAL IVP SCH ×2 (04:14→10:31)
[2018-11-15 04:53] LABS: EOSINOPHILS % (AUTO) 5.2 % (0.0-8.0); HEMATOCRIT 37.4 % (36-48); LYMPHOCYTES % (AUTO) 25.1 % (21.0-51.0); MEAN CORPUSCULAR HEMOGLOBIN 28.2 pg (27.0-33.0); MEAN CORPUSCULAR HGB CONC 32.1 g/dL (32.0-36.0); MEAN CORPUSCULAR VOLUME 87.9 fL (79-99); NEUTROPHILS % (AUTO) 52.7 % (40.0-77.0); PLATELET COUNT (AUTO) 156 K/uL (130-400); RED BLOOD CELL COUNT(AUTO) 4.26 MIL/uL (4.00-5.50); RED CELL DISTRIBUTION WIDTH 15.4 % (11.0-15.5); WHITE BLOOD COUNT (AUTO) 3.1 K/uL (4.8-10.8)
[2018-11-15 05:02] LABS: CREATININE 1.1 mg/dL (0.5-1.5); POTASSIUM 4.8 mmol/L (3.5-5.1)
[2018-11-15] MEDS: INSULIN HUMULIN R 100 UNIT/ML 3ML SQ SCH (06:24)
[2018-11-15] MEDS ORDERED: PREG300C PO (07:55)
[2018-11-15 08:06] VITALS: BP 130/62
[2018-11-15] MEDS: FAMOTIDINE/PF 20 MG/2 ML VIAL IV SCH (09:00)
[2018-11-15] MEDS: OXCARBAZEPINE 150 MG PO SCH (09:00)
[2018-11-15] MEDS: AMILORIDE HCL 5 MG TABLET PO SCH (10:32)
[2018-11-15] MEDS: AMLODIPINE BESYLATE 5 MG TAB PO SCH (10:32)
[2018-11-15] MEDS: PREGABALIN 100 MG CAPSULE PO SCH (10:32)
[2018-11-15] MEDS: SERTRALINE HCL 50 MG TABLET PO SCH (10:32)
[2018-11-15] MEDS: METOPROLOL TARTRATE 25 MG TAB PO SCH (10:32)
[2018-11-15] MEDS: ENOXAPARIN SODIUM 30 MG/0.3 ML SQ SCH (10:32)
== END 2018-11-15 11:05 | DRG 690 ==
LOC: EDH 09:47 → EDHIP 14:54 → 2DH 18:34 → 4CH 11-10 11:23
PROVIDERS: ADMIT Hospitalist; ATTEND Hospitalist
PROC: 02HV33Z Insertion of Infusion Device into Superior Vena Cava, Percutaneous Approach (ICD-10-PCS; principal; 2018-11-11)
DX: N39.0 Urinary tract infection, site not specified (principal); Z68.43 Body mass index [BMI] 50.0-59.9, adult; E87.6 Hypokalemia; I10 Essential (primary) hypertension; E11.9 Type 2 diabetes mellitus without complications; I25.10 Atherosclerotic heart disease of native coronary artery without angina pectoris; E66.01 Morbid (severe) obesity due to excess calories; E78.2 Mixed hyperlipidemia; I87.8 Other specified disorders of veins; I89.0 Lymphedema, not elsewhere classified; K59.00 Constipation, unspecified; N28.9 Disorder of kidney and ureter, unspecified; F31.9 Bipolar disorder, unspecified; Z96.651 Presence of right artificial knee joint; B96.20 Unspecified Escherichia coli [E. coli] as the cause of diseases classified elsewhere; Z16.12 Extended spectrum beta lactamase (ESBL) resistance; Z90.710 Acquired absence of both cervix and uterus; Z88.0 Allergy status to penicillin; Z88.8 Allergy status to other drugs, medicaments and biological substances; Z86.718 Personal history of other venous thrombosis and embolism; Z83.3 Family history of diabetes mellitus; Z82.49 Family history of ischemic heart disease and other diseases of the circulatory system
CPT/HCPCS: 36415; 71045; 80048; 80053; 81001; 82948; 83690; 83735; 84100; 84132; 85025; 85027; 85610; 85730; 87077; 87088; 87186; 93005; 97039; A4218; C1894; G0378; J0696; J1650; J1815; J2185; J2270; J3475; J3480; J3490; J7030

== ENCOUNTER 2019-02-23 12:33 | Emergency (ER) | payer MEDICARE ==
[~2019-02-23 12:33] MED LIST changes: +AMIL5TAB8 PO; -AMLO5TAB7 PO; +AMLO5TAB9 PO; -CLIN300C9 PO; +METR-172 PO; +SULF1TAB3 PO
[2019-02-23] MEDS ORDERED: ACETAMINOPHEN-CODEINE 300/30MG TAB ONE (13:00)
[2019-02-23 13:15] LABS: BASOPHILS % (AUTO) 0.5 % (0.0-5.0); HEMATOCRIT 35.9 % (36-48); LYMPHOCYTES % (AUTO) 16.1 % (21.0-51.0); MEAN CORPUSCULAR VOLUME 87.7 fL (79-99); MONOCYTES % (AUTO) 9.4 % (3.0-13.0); NUCLEATED RED BLOOD CELLS 0.1 % (0.0-0.19); PLATELET COUNT (AUTO) 178 K/uL (130-400); RED BLOOD CELL COUNT(AUTO) 4.09 MIL/uL (4.00-5.50); RED CELL DISTRIBUTION WIDTH 14.7 % (11.0-15.5); WHITE BLOOD COUNT (AUTO) 4.1 K/uL (4.8-10.8)
[2019-02-23 13:30] LABS: CREATININE 0.7 mg/dL (0.5-1.5); POTASSIUM 3.1 mmol/L (3.5-5.1)
[2019-02-23 13:35] LABS: BILIRUBIN,TOTAL 0.4 mg/dL (0.2-1.0); TOTAL PROTEIN, SERUM 7.3 g/dL (6.0-8.3)
[2019-02-23] MEDS ORDERED: MAGNESIUM OXIDE 400 MG TABLET PO ONE (14:05)
[2019-02-23] MEDS ORDERED: POTASSIUM CHLORIDE 20 MEQ ERTAB PO ONE (14:05)
[2019-02-23 14:22] LABS: APPEARANCE,URINE CLEAR (CLEAR); BILIRUBIN,URINE NEGATIVE (NEGATIVE); COLOR,URINE YELLOW (YELLOW); GLUCOSE, URINE (UA) NEGATIVE (NEGATIVE); KETONES,URINE NEGATIVE (NEGATIVE); LEUKOCYTE ESTERASE ,URINE LARGE (NEGATIVE); NITRATE,URINE NEGATIVE (NEGATIVE); OCCULT BLOOD,URINE LARGE (NEGATIVE); PH,URINE 8.5 (5.0-8.0); PROTEIN,URINE NEGATIVE (NEGATIVE); UROBILINOGEN,URINE 0.2 mg/dL (0.2-1.0)
[2019-02-23 14:32] LABS: BACTERIA,URINE None Seen /HPF (None Seen); CALCIUM PHOSPHATE CRYSTALS,UR None Seen /LPF (None Seen); MUCUS,URINE None Seen LPF (None Seen); RENAL EPITHELIAL CELLS,URINE None Seen /HPF (None Seen); SQUAMOUS EPITHELIAL CELL,UR None Seen /HPF (0-2); TRANSITIONAL EPI CELLS,URINE None Seen /HPF (None Seen); TRICHOMONAS,URINE None Seen /LPF (None Seen); YEAST,URINE BUDDING None Seen /HPF (None Seen)
== END 2019-02-23 15:30 | disposition home or self-care (01) ==
LOC: EDH 12:33
DX: G89.29 Other chronic pain (principal); M54.5 Low back pain; R30.0 Dysuria; R32 Unspecified urinary incontinence; E11.9 Type 2 diabetes mellitus without complications; I10 Essential (primary) hypertension; F31.9 Bipolar disorder, unspecified; Z88.0 Allergy status to penicillin; Z88.8 Allergy status to other drugs, medicaments and biological substances; Z90.49 Acquired absence of other specified parts of digestive tract; Z90.710 Acquired absence of both cervix and uterus; Z98.890 Other specified postprocedural states
CPT/HCPCS: 36415; 80053; 81001; 85025; 87077; 87088; 87186

== ENCOUNTER 2019-05-23 10:14 | Emergency (ER) | payer MEDICARE ==
[2019-05-23] MEDS ORDERED: ONDANSETRON HCL 4 MG/2 ML VIAL ONE (10:33)
[2019-05-23 10:34] LABS: BASOPHILS % (AUTO) 0.4 % (0.0-5.0); EOSINOPHILS % (AUTO) 0.2 % (0.0-8.0); HEMATOCRIT 38.8 % (36-48); MEAN CORPUSCULAR HEMOGLOBIN 29.2 pg (27.0-33.0); MEAN CORPUSCULAR HGB CONC 33.2 g/dL (32.0-36.0); MONOCYTES % (AUTO) 9.6 % (3.0-13.0); NEUTROPHILS % (AUTO) 77.8 % (40.0-77.0); NUCLEATED RED BLOOD CELLS 0.1 % (0.0-0.19); PLATELET COUNT (AUTO) 192 K/uL (130-400); RED BLOOD CELL COUNT(AUTO) 4.41 MIL/uL (4.00-5.50); RED CELL DISTRIBUTION WIDTH 14.1 % (11.0-15.5); WHITE BLOOD COUNT (AUTO) 6.3 K/uL (4.8-10.8)
[2019-05-23] MEDS ORDERED: SODIUM CHLORIDE 0.9% 1000ML 1,000 ML IV ONE ×2 (10:34→12:39)
[2019-05-23 11:11] LABS: ALBUMIN 3.5 g/dL (3.5-5.0); BILIRUBIN,TOTAL 0.6 mg/dL (0.2-1.0); CREATININE 0.8 mg/dL (0.5-1.5); TOTAL PROTEIN, SERUM 7.2 g/dL (6.0-8.3)
[2019-05-23 11:15] LABS: POTASSIUM 2.9 mmol/L (3.5-5.1)
[2019-05-23] MEDS ORDERED: POTASSIUM CHLORIDE 20 MEQ ERTAB PO ONE (12:38)
[2019-05-23] MEDS ORDERED: POTASSIUM CHLORIDE 10% ELIXIR 20 MEQ/15 ML UDCUP ONE (12:44)
== END 2019-05-23 14:29 | disposition home or self-care (01) ==
LOC: EDH 10:14
DX: K57.92 Diverticulitis of intestine, part unspecified, without perforation or abscess without bleeding (principal); E11.9 Type 2 diabetes mellitus without complications; F31.9 Bipolar disorder, unspecified; I10 Essential (primary) hypertension; E66.01 Morbid (severe) obesity due to excess calories; Z68.43 Body mass index [BMI] 50.0-59.9, adult; Z90.49 Acquired absence of other specified parts of digestive tract; Z90.710 Acquired absence of both cervix and uterus; Z88.0 Allergy status to penicillin; Z88.8 Allergy status to other drugs, medicaments and biological substances
CPT/HCPCS: 36415; 74176; 80053; 82150; 83690; 83735; 85025; 93005; 96361; 96374; 99285; J2405; J7030 ×2

== ENCOUNTER 2019-10-17 11:33 | Emergency (ER) | payer MEDICARE ==
[2019-10-17 11:57] LABS: BASOPHILS % (AUTO) 0.4 % (0.0-5.0); EOSINOPHILS % (AUTO) 0.6 % (0.0-8.0); HEMATOCRIT 43.1 % (36-48); LYMPHOCYTES % (AUTO) 13.1 % (21.0-51.0); MEAN CORPUSCULAR HEMOGLOBIN 30.8 pg (27.0-33.0); MEAN CORPUSCULAR HGB CONC 33.8 g/dL (32.0-36.0); MEAN CORPUSCULAR VOLUME 91.1 fL (79-99); MONOCYTES % (AUTO) 6.8 % (3.0-13.0); NEUTROPHILS % (AUTO) 79.1 % (40.0-77.0); NUCLEATED RED BLOOD CELLS 0.1 % (0.0-0.19); PLATELET COUNT (AUTO) 203 K/uL (130-400); RED BLOOD CELL COUNT(AUTO) 4.73 MIL/uL (4.00-5.50); RED CELL DISTRIBUTION WIDTH 14.4 % (11.0-15.5); WHITE BLOOD COUNT (AUTO) 7.2 K/uL (4.8-10.8)
[2019-10-17 12:05] LABS: CREATININE 0.9 mg/dL (0.5-1.5); POTASSIUM 3.2 mmol/L (3.5-5.1)
[2019-10-17] MEDS ORDERED: LIDOCAINE HCL 2% VISCOUS 15 ML UDCUP ONE (12:09)
[2019-10-17] MEDS ORDERED: MAG HYDROX/AL HYDROX/SIMETH ES 30 ML SUSP UDCUP ONE (12:09)
[2019-10-17] MEDS ORDERED: FAMOTIDINE 20MG TAB 20 MG TAB ONE (12:10)
[2019-10-17 12:12] LABS: ALBUMIN 3.4 g/dL (3.5-5.0); TOTAL PROTEIN, SERUM 8.1 g/dL (6.0-8.3)
[2019-10-17 12:24] LABS: CREATINE KINASE, TOTAL 186 U/L (21-232); MYOGLOBIN 122 ng/mL (10-92); TROPONIN I < 0.04 ng/mL (0.00-0.06)
== END 2019-10-17 13:24 | disposition home or self-care (01) ==
LOC: EDH 11:33
DX: R10.13 Epigastric pain (principal); R11.0 Nausea; F31.9 Bipolar disorder, unspecified; E11.9 Type 2 diabetes mellitus without complications; I10 Essential (primary) hypertension; E66.01 Morbid (severe) obesity due to excess calories; Z68.43 Body mass index [BMI] 50.0-59.9, adult; Z88.0 Allergy status to penicillin; Z88.8 Allergy status to other drugs, medicaments and biological substances
CPT/HCPCS: 36415; 80053; 82550; 83874; 84484; 85025; 93005

== ENCOUNTER 2020-02-04 09:12 | Inpatient (IN) | payer MEDICARE ==
[~2020-02-04] VITALS: Ht 152.4 cm; Wt 122.2 kg
[~2020-02-04 09:12] MED LIST changes: +ACET1TAB12 PO; -AMIL5TAB8 PO; -AMLO5TAB9 PO; +ASPI-555 PO; -DICY10CA13 PO; +DOCU-275 PO; -HYDR25TA PO; -HYDR50CA50 PO; -METO25TA6 PO; -METR-172 PO; -OXCA150T27 PO; +OXCA300T46 PO; +PANT40TA25 PO; -RAME8TAB8 PO; -SERT50TA12 PO; -SULF1TAB3 PO
[2020-02-04 09:26] LABS: BASOPHILS % (AUTO) 0.6 % (0.0-5.0); EOSINOPHILS % (AUTO) 2.8 % (0.0-8.0); HEMATOCRIT 39.6 % (36-48); LYMPHOCYTES % (AUTO) 20.2 % (21.0-51.0); MEAN CORPUSCULAR HEMOGLOBIN 28.9 pg (27.0-33.0); MEAN CORPUSCULAR HGB CONC 31.6 g/dL (32.0-36.0); MEAN CORPUSCULAR VOLUME 91.7 fL (79-99); MONOCYTES % (AUTO) 10.3 % (3.0-13.0); NEUTROPHILS % (AUTO) 65.5 % (40.0-77.0); PLATELET COUNT (AUTO) 154 K/uL (130-400); RED BLOOD CELL COUNT(AUTO) 4.32 MIL/uL (4.00-5.50); RED CELL DISTRIBUTION WIDTH 13.6 % (11.0-15.5); WHITE BLOOD COUNT (AUTO) 4.9 K/uL (4.8-10.8)
[2020-02-04 09:32] LABS: CREATININE 0.9 mg/dL (0.5-1.5); POTASSIUM 3.5 mmol/L (3.5-5.1)
[2020-02-04 09:50] LABS: APPEARANCE,URINE TURBID (CLEAR); BILIRUBIN,URINE SMALL (NEGATIVE); COLOR,URINE ORANGE (YELLOW); GLUCOSE, URINE (UA) 100 mg/dL (NEGATIVE); KETONES,URINE NEGATIVE (NEGATIVE); LEUKOCYTE ESTERASE ,URINE MODERATE (NEGATIVE); NITRATE,URINE POSITIVE (NEGATIVE); OCCULT BLOOD,URINE LARGE (NEGATIVE); PROTEIN,URINE >=300 mg/dL (NEGATIVE); UROBILINOGEN,URINE >=8.0 mg/dL (0.2-1.0)
[2020-02-04 09:56] LABS: BACTERIA,URINE Few /HPF (None Seen); RBC,URINE 51-100 /HPF (0-1); SQUAMOUS EPITHELIAL CELL,UR Few /HPF (0-2); WBC,URINE 51-100 /HPF (0-1)
[2020-02-04] MEDS ORDERED: ONDANSETRON HCL 4 MG/2 ML VIAL IVP PRN (11:15)
[2020-02-04] MEDS: LEVOFLOXACIN 500 MG/D5W 100 ML 100 ML IV SCH (11:15)
[2020-02-04] MEDS ORDERED: ACETAMINOPHEN 325 MG TAB PO PRN (11:15)
[2020-02-04] MEDS ORDERED: LEVOFLOXACIN 750 MG/D5W 150 ML 150 ML ONE (11:25)
[2020-02-04] MEDS ORDERED: HYDR-4060 PO ×2 (11:49→15:21)
[2020-02-04] MEDS ORDERED: POTA-9 PO (11:49)
[2020-02-04] MEDS ORDERED: DICY10CA13 PO (11:49)
[2020-02-04] MEDS ORDERED: INSLAN SQ (11:49)
[2020-02-04] MEDS ORDERED: ERGO50CA PO (11:49)
[2020-02-04] MEDS ORDERED: INSU100I15 SQ (11:49)
[2020-02-04 12:40] VITALS: BP 127/61
[2020-02-04] MEDS ORDERED: DEXTROSE 50%-WATER 50 ML DISP.SYRIN IV PRN (13:45)
[2020-02-04] MEDS ORDERED: GLUCAGON 1MG KIT 1 MG ML IM PRN (13:45)
[2020-02-04 15:39] VITALS: BP 141/65
[2020-02-04] MEDS: INSULIN HUMULIN R 100 UNIT/ML 3ML SQ SCH ×2 (16:30→20:40)
[2020-02-04] MEDS ORDERED: HYDROCODONE/ACETAMINOPHEN 5/325 MG TAB PO PRN (17:00)
[2020-02-04 19:54] VITALS: BP 131/52
[2020-02-04] MEDS: PREGABALIN 100 MG CAPSULE PO SCH (20:40)
[2020-02-04] MEDS: HYDROCODONE/ACETAMINOPHEN 5/325 MG TAB PO PRN (21:09)
[2020-02-04 23:53] VITALS: BP 124/49
[2020-02-05 03:57] VITALS: BP 119/53
[2020-02-05 06:00] LABS: BASOPHILS % (AUTO) 0.2 % (0.0-5.0); EOSINOPHILS % (AUTO) 3.7 % (0.0-8.0); HEMATOCRIT 36.5 % (36-48); LYMPHOCYTES % (AUTO) 28.2 % (21.0-51.0); MEAN CORPUSCULAR HEMOGLOBIN 28.7 pg (27.0-33.0); MEAN CORPUSCULAR HGB CONC 31.5 g/dL (32.0-36.0); MONOCYTES % (AUTO) 12.4 % (3.0-13.0); NEUTROPHILS % (AUTO) 55.3 % (40.0-77.0); PLATELET COUNT (AUTO) 159 K/uL (130-400); RED BLOOD CELL COUNT(AUTO) 4.01 MIL/uL (4.00-5.50); RED CELL DISTRIBUTION WIDTH 13.6 % (11.0-15.5)
[2020-02-05] MEDS: INSULIN HUMULIN R 100 UNIT/ML 3ML SQ SCH ×4 (06:01→21:00)
[2020-02-05 06:16] LABS: CREATININE 0.8 mg/dL (0.5-1.5); POTASSIUM 3.3 mmol/L (3.5-5.1)
[2020-02-05] MEDS ORDERED: POTASSIUM CHLORIDE 10% ELIXIR 20 MEQ/15 ML UDCUP PO PRN ×2 (07:15)
[2020-02-05] MEDS ORDERED: LIDOCAINE HCL-MPF 1% 2ML VIAL IV PRN ×2 (07:15)
[2020-02-05] MEDS ORDERED: POTASSIUM CHLORIDE 20 MEQ ERTAB PO PRN (07:15)
[2020-02-05] MEDS ORDERED: POTASSIUM CHLORIDE 20MEQ/100ML 100 ML IV PRN ×2 (07:15)
[2020-02-05] MEDS: HYDROCODONE/ACETAMINOPHEN 5/325 MG TAB PO PRN (07:52)
[2020-02-05 08:00] VITALS: BP 160/59
[2020-02-05] MEDS: PREGABALIN 100 MG CAPSULE PO SCH ×2 (09:05→21:41)
[2020-02-05] MEDS: ASPIRIN 81 MG EC TAB PO SCH (09:05)
[2020-02-05] MEDS: FUROSEMIDE 20 MG TABLET PO SCH (09:05)
[2020-02-05] MEDS: ENOXAPARIN SODIUM 30 MG/0.3 ML SQ SCH (09:07)
[2020-02-05] MEDS: POTASSIUM CHLORIDE 20 MEQ ERTAB PO PRN ×3 (09:14→15:46)
[2020-02-05] MEDS: LEVOFLOXACIN 500 MG/D5W 100 ML 100 ML IV SCH (11:25)
[2020-02-05 12:00] VITALS: BP 136/40
--- NOTE | 2020-02-05 14:35 | NUR ---
INITIAL SW met with patient. Patient lives with her mother. Emergency contact is Connie edwards, [phone]. Patient has [facility] visiting daily for wound care. MELODIE/Choice form completed and placed in chart. Providers with [facility] 35 hours a week. Patient also has a private sitter that family helps to provide. DME: wheelchair, walker with seat, hospital bed, trapeze, standard walker, shower chair, BPM, glucometer (uses insulin), oximeter, nebulizer. Patient requires assistance in completing ADL's. She does not drive. Private sitter assists with transportation for patient. PCP is Dr. Jose Alfredo Lehman. Pharmacy is [facility] located in [place]. DCP is home. Addendum: 02/05/20 at 1439 by RAMON ROMERO SS Amended: Links added.
[2020-02-05 16:00] VITALS: BP 119/67
[2020-02-05 20:00] VITALS: BP 138/49
[2020-02-06] VITALS (7 sets, daily range): BP systolic 108–142; BP diastolic 42–58
[2020-02-06] MEDS: HYDROCODONE/ACETAMINOPHEN 5/325 MG TAB PO PRN ×3 (00:23→18:18)
[2020-02-06 04:02] LABS: BASOPHILS % (AUTO) 0.5 % (0.0-5.0); EOSINOPHILS % (AUTO) 3.7 % (0.0-8.0); HEMATOCRIT 36.1 % (36-48); LYMPHOCYTES % (AUTO) 24.2 % (21.0-51.0); MEAN CORPUSCULAR HEMOGLOBIN 28.9 pg (27.0-33.0); MEAN CORPUSCULAR HGB CONC 32.1 g/dL (32.0-36.0); MONOCYTES % (AUTO) 12.7 % (3.0-13.0); NEUTROPHILS % (AUTO) 58.7 % (40.0-77.0); PLATELET COUNT (AUTO) 152 K/uL (130-400); RED BLOOD CELL COUNT(AUTO) 4.01 MIL/uL (4.00-5.50); RED CELL DISTRIBUTION WIDTH 13.4 % (11.0-15.5); WHITE BLOOD COUNT (AUTO) 4.3 K/uL (4.8-10.8)
[2020-02-06 04:19] LABS: POTASSIUM 3.9 mmol/L (3.5-5.1)
[2020-02-06] MEDS: INSULIN HUMULIN R 100 UNIT/ML 3ML SQ SCH ×4 (06:37→21:14)
[2020-02-06] MEDS: ASPIRIN 81 MG EC TAB PO SCH (10:14)
[2020-02-06] MEDS: ENOXAPARIN SODIUM 30 MG/0.3 ML SQ SCH (10:14)
[2020-02-06] MEDS: PREGABALIN 100 MG CAPSULE PO SCH ×2 (10:15→21:05)
[2020-02-06] MEDS: FUROSEMIDE 20 MG TABLET PO SCH (10:15)
[2020-02-06] MEDS: CEFTRIAXONE SODIUM 1 GM IVP SCH (12:37)
[2020-02-07 03:00] VITALS: BP 127/47
[2020-02-07] MEDS: HYDROCODONE/ACETAMINOPHEN 5/325 MG TAB PO PRN ×2 (04:54→15:32)
[2020-02-07] MEDS: INSULIN HUMULIN R 100 UNIT/ML 3ML SQ SCH ×2 (05:51→11:30)
[2020-02-07 08:09] VITALS: BP 145/81
[2020-02-07] MEDS ORDERED: PANTOPRAZOLE SODIUM 40 MG TABLET.DR PO SCH (09:00)
[2020-02-07] MEDS: FUROSEMIDE 20 MG TABLET PO SCH (10:02)
[2020-02-07] MEDS: PREGABALIN 100 MG CAPSULE PO SCH (10:02)
[2020-02-07] MEDS: ASPIRIN 81 MG EC TAB PO SCH (10:02)
[2020-02-07] MEDS: ENOXAPARIN SODIUM 30 MG/0.3 ML SQ SCH (10:03)
[2020-02-07] MEDS: CEFTRIAXONE SODIUM 1 GM IVP SCH (10:03)
[2020-02-07 11:10] VITALS: BP 128/62
--- NOTE | 2020-02-07 12:42 | NUR ---
DISCHARGE DISCUSSED W DR. HERNANDEZ, PO ABX RX'D, WILL ATTEMPT [facility] T[facility]OR[facility] TO [facility]PED[facility] HE[facility] Addendum: 02/07/20 at 1244 by CAROL EPSTEIN RN CM Amended: Links added.
--- NOTE | 2020-02-07 16:10 | NUR ---
CALL TO [facility]- APPT MADE W PCP FOR TOMORROW AT 0940. WILL FAX CULTURE AND RX BY MARY TO [phone] VARGAS, AWAITING REPLY
[2020-02-07 16:28] VITALS: BP 134/53
--- NOTE | 2020-02-07 17:51 | NUR ---
FAXED INFO TO [facility]. CULTURES ANDP NOTE PATIENT WILL HAVE OT GO TO DR. [facility] TO GET HH RE STARTED
[2020-02-07 19:00] VITALS: BP 141/56
--- NOTE | 2020-02-07 20:14 | NUR ---
CHELITAN SISTER SHE CANNOT TAKE CARE OF HIM
--- NOTE | 2020-02-07 20:15 | NUR ---
Discharge instructions provided to patient with follow up and instruction to complete antibiotic therapy. Home care for UTI prevention reviewed. Patient verbalized understanding. Prescription for antibiotic given to patient. Wound care performed and discharge picture taken.
[2020-02-11] MEDS ORDERED: ERGOCALCIFEROL 50 MCG PO SCH (09:00)
== END 2020-02-07 18:35 | disposition home or self-care (01) | DRG 690 ==
LOC: EDH 09:12 → EDHIP 11:12 → 4BH 12:01
PROVIDERS: ADMIT Family Medicine; ATTEND Family Medicine
DX: N39.0 Urinary tract infection, site not specified (principal); Z68.43 Body mass index [BMI] 50.0-59.9, adult; E03.9 Hypothyroidism, unspecified; E11.9 Type 2 diabetes mellitus without complications; E66.01 Morbid (severe) obesity due to excess calories; F31.9 Bipolar disorder, unspecified; G89.29 Other chronic pain; I10 Essential (primary) hypertension; K21.9 Gastro-esophageal reflux disease without esophagitis; L98.429 Non-pressure chronic ulcer of back with unspecified severity; G51.0 Bell's palsy; Z86.19 Personal history of other infectious and parasitic diseases; Z86.73 Personal history of transient ischemic attack (TIA), and cerebral infarction without residual deficits; Z90.710 Acquired absence of both cervix and uterus; Z90.49 Acquired absence of other specified parts of digestive tract; Z88.0 Allergy status to penicillin; Z88.8 Allergy status to other drugs, medicaments and biological substances
CPT/HCPCS: 36415; 80048; 81001; 82948; 83605; 84145; 85025; 87077; 87088; 87186; G0378; J0696; J1650; J1815; J1956

== ENCOUNTER → 2020-03-18 | Outpatient (CLI) | payer MEDICARE ==
[~2020-03-18] MED LIST changes: -ACET1TAB12 PO; +DICY10CA13 PO; +ERGO50CA PO; +HYDR-4060 PO; +INSLAN SQ; -OXCA300T46 PO; +POTA-9 PO; -TRAZ-185 PO
== END | disposition home or self-care (01) ==
LOC: SHCH 09:10
PROVIDERS: ATTEND Internal Medicine Cardiovascular Disease
DX: I87.2 Venous insufficiency (chronic) (peripheral) (principal); K21.9 Gastro-esophageal reflux disease without esophagitis
CPT/HCPCS: 93925; 93970

== ENCOUNTER → 2020-04-16 | Outpatient (CLI) | payer MEDICARE ==
[~2020-04-16] MED LIST changes: -ASPI-555 PO; +ASPI-556 PO; -PANT40TA25 PO; +PANT40TA54 PO
== END | disposition home or self-care (01) ==
LOC: RAH 10:17
PROVIDERS: ATTEND Urology
DX: N30.20 Other chronic cystitis without hematuria (principal)
CPT/HCPCS: 76770

== ENCOUNTER → 2020-04-19 | Outpatient (CLI) | payer MEDICARE ==
[~2020-04-19] MED LIST changes: +ASPI-555 PO; -ASPI-556 PO; +PANT40TA25 PO; -PANT40TA54 PO
== END | disposition home or self-care (01) ==
LOC: SHCH 10:53
PROVIDERS: ATTEND Internal Medicine Cardiovascular Disease
DX: I48.0 Paroxysmal atrial fibrillation (principal)
CPT/HCPCS: 93306

== ENCOUNTER 2020-04-27 16:07 | Emergency (ER) | payer MEDICARE, OTHER ==
[2020-04-27] MEDS ORDERED: LIDOCAINE 5% TOPICAL PATCH TP ONE (17:03)
[2020-04-27] MEDS ORDERED: KETOROLAC TROMETHAMINE 15MG/ML ONE (17:03)
[2020-04-27] MEDS ORDERED: DEXAMETHASONE SOD PHOSPHATE 10MG/ML 1ML VIAL ONE (17:03)
== END 2020-04-27 18:05 | disposition home or self-care (01) ==
LOC: EDH 16:07
DX: G89.29 Other chronic pain (principal); M54.5 Low back pain; E11.9 Type 2 diabetes mellitus without complications; I10 Essential (primary) hypertension; Z90.710 Acquired absence of both cervix and uterus; Z88.0 Allergy status to penicillin; Z88.8 Allergy status to other drugs, medicaments and biological substances
CPT/HCPCS: 96372 ×2; 99284; J1100; J1885

== ENCOUNTER 2020-07-16 12:59 | Emergency (ER) | payer MEDICARE, OTHER ==
[~2020-07-16 12:59] MED LIST changes: -ASPI-555 PO; +ASPI-556 PO
[2020-07-16] MEDS ORDERED: SODIUM CHLORIDE 0.9% 1000ML 1,000 ML IV ONE (13:32)
[2020-07-16 13:37] LABS: BASOPHILS % (AUTO) 0.1 % (0.0-5.0); EOSINOPHILS % (AUTO) 0.4 % (0.0-8.0); HEMATOCRIT 37.1 % (36-48); LYMPHOCYTES % (AUTO) 9.9 % (21.0-51.0); MEAN CORPUSCULAR HEMOGLOBIN 29.6 pg (27.0-33.0); MEAN CORPUSCULAR HGB CONC 31.8 g/dL (32.0-36.0); MEAN CORPUSCULAR VOLUME 93.2 fL (79-99); MONOCYTES % (AUTO) 10.3 % (3.0-13.0); NEUTROPHILS % (AUTO) 78.7 % (40.0-77.0); PLATELET COUNT (AUTO) 170 K/uL (130-400); RED BLOOD CELL COUNT(AUTO) 3.98 MIL/uL (4.00-5.50); RED CELL DISTRIBUTION WIDTH 13.7 % (11.0-15.5); WHITE BLOOD COUNT (AUTO) 6.8 K/uL (4.8-10.8)
[2020-07-16 13:50] LABS: CREATININE 1.2 mg/dL (0.5-1.5); POTASSIUM 3.9 mmol/L (3.5-5.1)
[2020-07-16 13:55] LABS: ALBUMIN 3.2 g/dL (3.5-5.0); BILIRUBIN,TOTAL 0.4 mg/dL (0.2-1.0)
== END 2020-07-16 15:11 | disposition home or self-care (01) ==
LOC: EDH 12:59
DX: R19.7 Diarrhea, unspecified (principal); R42 Dizziness and giddiness; I10 Essential (primary) hypertension; E11.9 Type 2 diabetes mellitus without complications; F31.9 Bipolar disorder, unspecified; Z90.49 Acquired absence of other specified parts of digestive tract; Z90.710 Acquired absence of both cervix and uterus; Z88.0 Allergy status to penicillin; Z88.8 Allergy status to other drugs, medicaments and biological substances; Z86.718 Personal history of other venous thrombosis and embolism; Z98.890 Other specified postprocedural states
CPT/HCPCS: 36415; 80053; 85025; 96360; 99283; J7030

== ENCOUNTER 2020-08-20 13:04 | Emergency (ER) | payer MEDICARE ==
[~2020-08-20 13:04] MED LIST changes: -PANT40TA25 PO; +PANT40TA54 PO
[2020-08-20 13:43] LABS: BASOPHILS % (AUTO) 0.2 % (0.0-5.0); EOSINOPHILS % (AUTO) 1.1 % (0.0-8.0); HEMATOCRIT 36.4 % (36-48); LYMPHOCYTES % (AUTO) 11.7 % (21.0-51.0); MEAN CORPUSCULAR HEMOGLOBIN 29.7 pg (27.0-33.0); MEAN CORPUSCULAR HGB CONC 32.4 g/dL (32.0-36.0); MEAN CORPUSCULAR VOLUME 91.7 fL (79-99); MONOCYTES % (AUTO) 9.1 % (3.0-13.0); NEUTROPHILS % (AUTO) 77.4 % (40.0-77.0); PLATELET COUNT (AUTO) 182 K/uL (130-400); RED BLOOD CELL COUNT(AUTO) 3.97 MIL/uL (4.00-5.50); RED CELL DISTRIBUTION WIDTH 14.1 % (11.0-15.5); WHITE BLOOD COUNT (AUTO) 5.7 K/uL (4.8-10.8)
[2020-08-20 13:50] LABS: APPEARANCE,URINE Clear (CLEAR); BILIRUBIN,URINE Negative (NEGATIVE); COLOR,URINE Yellow (YELLOW); GLUCOSE, URINE (UA) Negative (NEGATIVE); KETONES,URINE Negative (NEGATIVE); LEUKOCYTE ESTERASE ,URINE Negative (NEGATIVE); NITRATE,URINE Negative (NEGATIVE); OCCULT BLOOD,URINE Negative (NEGATIVE); PROTEIN,URINE Negative (NEGATIVE); UROBILINOGEN,URINE 0.2 mg/dL (0.2-1.0)
[2020-08-20] MEDS ORDERED: ONDANSETRON HCL 4 MG/2 ML VIAL ONE (14:04)
[2020-08-20] MEDS ORDERED: HYOSCYAMINE SULFATE 0.125 MG TAB.SUBL SL ONE (14:04)
[2020-08-20] MEDS ORDERED: FAMOTIDINE/PF 20 MG/2 ML VIAL IV ONE (14:05)
[2020-08-20 14:34] LABS: ALANINE AMINOTRANSFERASE 18 U/L (12-78); ASPARTATE AMINOTRANSFERASE 30 U/L (10-37); BILIRUBIN,TOTAL 0.5 mg/dL (0.2-1.0); CARBON DIOXIDE 30 mmol/L (21-32); CHLORIDE 104 mmol/L (101-111); CREATINE KINASE, TOTAL 166 U/L (21-232); CREATININE 0.9 mg/dL (0.5-1.5); GLOMERULAR FILTR. RATE CALC 66 mL/min (>60); GLUCOSE,RANDOM 189 mg/dL (70-105); POTASSIUM 3.9 mmol/L (3.5-5.1); SODIUM SERUM 140 mmol/L (136-145); TOTAL PROTEIN, SERUM 6.8 g/dL (6.0-8.3)
[2020-08-20 14:46] LABS: LIPASE < 50 U/L (114-286)
[2020-08-20 15:01] LABS: UREA NITROGEN, BLOOD 9 mg/dL (7-18)
[2020-08-20] MEDS ORDERED: LIDOCAINE HCL 2% VISCOUS 15 ML UDCUP ONE (15:46)
[2020-08-20] MEDS ORDERED: MAGNESIUM HYDROXIDE 30 ML/UDCUP ONE (15:47)
== END 2020-08-20 16:33 | disposition home or self-care (01) ==
LOC: EDH 13:04
DX: R10.13 Epigastric pain (principal); E13.8 Other specified diabetes mellitus with unspecified complications; F31.9 Bipolar disorder, unspecified; Z86.718 Personal history of other venous thrombosis and embolism; Z88.0 Allergy status to penicillin; Z88.8 Allergy status to other drugs, medicaments and biological substances; I10 Essential (primary) hypertension; Z90.710 Acquired absence of both cervix and uterus; Z98.890 Other specified postprocedural states
CPT/HCPCS: 36415; 80053; 81003; 82550; 83690; 84484; 85025; 93005; 96374; 96375; 99284; J2405; J3490

== ENCOUNTER → 2020-09-05 | Outpatient (CLI) | payer MEDICARE | END | disposition home or self-care (01) | LOC: RAH 09:26 | PROVIDERS: ATTEND Internal Medicine Gastroenterology | DX: K76.0 Fatty (change of) liver, not elsewhere classified (principal); R10.11 Right upper quadrant pain; R16.0 Hepatomegaly, not elsewhere classified | CPT/HCPCS: 76700 ==

== ENCOUNTER 2020-09-09 23:25 | Emergency (ER) | payer MEDICARE ==
[2020-09-10 00:42] LABS: CREATININE 1.1 mg/dL (0.5-1.5); POTASSIUM 3.7 mmol/L (3.5-5.1)
[2020-09-10 00:43] LABS: BASOPHILS % (AUTO) 0.5 % (0.0-5.0); EOSINOPHILS % (AUTO) 4.2 % (0.0-8.0); HEMATOCRIT 34.4 % (36-48); LYMPHOCYTES % (AUTO) 19.4 % (21.0-51.0); MEAN CORPUSCULAR HEMOGLOBIN 29.2 pg (27.0-33.0); MEAN CORPUSCULAR HGB CONC 31.1 g/dL (32.0-36.0); MONOCYTES % (AUTO) 12.4 % (3.0-13.0); NEUTROPHILS % (AUTO) 63.3 % (40.0-77.0); PLATELET COUNT (AUTO) 179 K/uL (130-400); RED BLOOD CELL COUNT(AUTO) 3.66 MIL/uL (4.00-5.50); RED CELL DISTRIBUTION WIDTH 13.7 % (11.0-15.5)
[2020-09-10 00:45] LABS: INR 0.99 (0.85-1.15); PARTIAL THROMBOPLASTIN TIME 28.5 SEC (26.3-35.5); PROTHROMBIN TIME 10.7 SEC (9.6-11.6)
[2020-09-10 00:47] LABS: ALBUMIN 3.1 g/dL (3.5-5.0); BILIRUBIN,TOTAL 0.2 mg/dL (0.2-1.0); TOTAL PROTEIN, SERUM 6.8 g/dL (6.0-8.3)
[2020-09-10] MEDS ORDERED: ONDANSETRON HCL 4 MG/2 ML VIAL ONE (01:21)
[2020-09-10] MEDS ORDERED: MORPHINE SULFATE 4 MG/1ML SYG ONE (01:21)
== END 2020-09-10 04:00 | disposition home or self-care (01) ==
LOC: EDH 23:25
DX: I12.0 Hypertensive chronic kidney disease with stage 5 chronic kidney disease or end stage renal disease (principal); N18.6 End stage renal disease; E11.22 Type 2 diabetes mellitus with diabetic chronic kidney disease; M79.661 Pain in right lower leg; M79.671 Pain in right foot; I48.91 Unspecified atrial fibrillation; Z88.0 Allergy status to penicillin; Z88.8 Allergy status to other drugs, medicaments and biological substances; Z90.49 Acquired absence of other specified parts of digestive tract; Z90.710 Acquired absence of both cervix and uterus; Z98.890 Other specified postprocedural states; Z86.718 Personal history of other venous thrombosis and embolism
CPT/HCPCS: 36415; 73630; 80053; 82550; 84484; 85025; 85610; 85730; 93005; 93971; 96374; 96375; 99285; J2270; J2405

== ENCOUNTER 2020-12-31 09:15 | Emergency (ER) | payer MEDICARE, OTHER ==
[2020-12-31 10:05] LABS: BASOPHILS % (AUTO) 0.2 % (0.0-5.0); HEMATOCRIT 34.6 % (36-48); LYMPHOCYTES % (AUTO) 9.8 % (21.0-51.0); MEAN CORPUSCULAR HEMOGLOBIN 28.6 pg (27.0-33.0); MEAN CORPUSCULAR HGB CONC 32.1 g/dL (32.0-36.0); MEAN CORPUSCULAR VOLUME 89.2 fL (79-99); MONOCYTES % (AUTO) 10.2 % (3.0-13.0); NEUTROPHILS % (AUTO) 79.1 % (40.0-77.0); PLATELET COUNT (AUTO) 184 K/uL (130-400); RED BLOOD CELL COUNT(AUTO) 3.88 MIL/uL (4.00-5.50); WHITE BLOOD COUNT (AUTO) 5.6 K/uL (4.8-10.8)
[2020-12-31 10:20] LABS: CREATININE 0.9 mg/dL (0.5-1.5); POTASSIUM 3.5 mmol/L (3.5-5.1)
[2020-12-31 10:24] LABS: ALBUMIN 2.8 g/dL (3.5-5.0); BILIRUBIN,TOTAL 0.3 mg/dL (0.2-1.0); TOTAL PROTEIN, SERUM 6.4 g/dL (6.0-8.3)
[2020-12-31] MEDS ORDERED: MORPHINE SULFATE 4 MG/1ML SYG ONE (10:27)
[2020-12-31] MEDS ORDERED: ONDANSETRON HCL 4 MG/2 ML VIAL ONE ×2 (10:27→14:21)
[2020-12-31] MEDS ORDERED: SODIUM CHLORIDE 0.9% 1000ML 1,000 ML IV ONE (10:28)
[2020-12-31 11:22] LABS: APPEARANCE,URINE Clear (CLEAR); BILIRUBIN,URINE Negative (NEGATIVE); COLOR,URINE Yellow (YELLOW); GLUCOSE, URINE (UA) Negative (NEGATIVE); KETONES,URINE >=80 mg/dL (NEGATIVE); LEUKOCYTE ESTERASE ,URINE Trace (NEGATIVE); NITRATE,URINE Negative (NEGATIVE); OCCULT BLOOD,URINE Negative (NEGATIVE); PROTEIN,URINE POS 1+ mg/dL (NEGATIVE)
[2020-12-31 11:34] LABS: RBC,URINE 0-1 /HPF (0-1); WBC,URINE 0-1 /HPF (0-1)
[2020-12-31 11:35] LABS: BACTERIA,URINE Few /HPF (None Seen); MUCUS,URINE Few LPF (None Seen)
== END 2020-12-31 16:33 | disposition home or self-care (01) ==
LOC: EDH 09:15
DX: R10.9 Unspecified abdominal pain (principal); R19.7 Diarrhea, unspecified; R53.1 Weakness; E66.01 Morbid (severe) obesity due to excess calories; I10 Essential (primary) hypertension; I48.91 Unspecified atrial fibrillation; F31.9 Bipolar disorder, unspecified; Z90.49 Acquired absence of other specified parts of digestive tract; Z98.890 Other specified postprocedural states; Z86.73 Personal history of transient ischemic attack (TIA), and cerebral infarction without residual deficits; Z68.41 Body mass index [BMI] 40.0-44.9, adult; Z88.0 Allergy status to penicillin; Z88.8 Allergy status to other drugs, medicaments and biological substances
CPT/HCPCS: 36415; 80053; 81001; 83690; 85025; 96361; 96374; 96375; 96376; 99284; J2270; J2405 ×2; J7030

== ENCOUNTER 2021-01-01 10:30 | Emergency (ER) | payer MEDICARE, OTHER ==
[~2021-01-01 10:30] MED LIST changes: +DOCU-270 PO; -DOCU-275 PO; +POTA-10 PO; -POTA-9 PO
[2021-01-01 10:58] LABS: BASOPHILS % (AUTO) 0.2 % (0.0-5.0); EOSINOPHILS % (AUTO) 0.5 % (0.0-8.0); HEMATOCRIT 33.8 % (36-48); LYMPHOCYTES % (AUTO) 8.6 % (21.0-51.0); MEAN CORPUSCULAR HEMOGLOBIN 28.8 pg (27.0-33.0); MEAN CORPUSCULAR HGB CONC 32.2 g/dL (32.0-36.0); MEAN CORPUSCULAR VOLUME 89.2 fL (79-99); MONOCYTES % (AUTO) 7.9 % (3.0-13.0); NEUTROPHILS % (AUTO) 82.1 % (40.0-77.0); PLATELET COUNT (AUTO) 175 K/uL (130-400); RED BLOOD CELL COUNT(AUTO) 3.79 MIL/uL (4.00-5.50); RED CELL DISTRIBUTION WIDTH 13.9 % (11.0-15.5); WHITE BLOOD COUNT (AUTO) 5.9 K/uL (4.8-10.8)
[2021-01-01 11:15] LABS: CREATININE 0.9 mg/dL (0.5-1.5); POTASSIUM 3.2 mmol/L (3.5-5.1)
[2021-01-01 11:24] LABS: ALBUMIN 3.2 g/dL (3.5-5.0); BILIRUBIN,TOTAL 0.4 mg/dL (0.2-1.0); TOTAL PROTEIN, SERUM 6.6 g/dL (6.0-8.3)
[2021-01-01] MEDS ORDERED: IOHEXOL-350 75 ML VIAL IV ONE (12:05)
[2021-01-01] MEDS ORDERED: DICYCLOMINE HCL 20 MG TAB ONE (12:12)
[2021-01-01] MEDS ORDERED: ONDANSETRON 4MG INJ ONE (12:12)
[2021-01-01] MEDS ORDERED: 0.9%NACL 1000ML 1,000 ML IV ONE (12:12)
[2021-01-01 13:13] LABS: APPEARANCE,URINE Clear (CLEAR); BILIRUBIN,URINE Negative (NEGATIVE); COLOR,URINE Dark Yellow (YELLOW); GLUCOSE, URINE (UA) Negative (NEGATIVE); KETONES,URINE >=160 mg/dL (NEGATIVE); LEUKOCYTE ESTERASE ,URINE Moderate (NEGATIVE); NITRATE,URINE Negative (NEGATIVE); OCCULT BLOOD,URINE Moderate (NEGATIVE); PH,URINE 7.5 (5.0-8.0); PROTEIN,URINE POS 1+ mg/dL (NEGATIVE)
[2021-01-01 13:33] LABS: BACTERIA,URINE Few /HPF (None Seen); SQUAMOUS EPITHELIAL CELL,UR None Seen /HPF (0-2)
[2021-01-01] MEDS ORDERED: LEVOFLOXACIN 500 MG TABLET ONE (14:04)
[2021-01-01] MEDS ORDERED: POTASSIUM BICARB/CIT AC 25 MEQ TABLET.EFF ONE (14:04)
[2021-05-01] MEDS ORDERED: DOCU-116 PO (11:05)
[2021-05-01] MEDS ORDERED: ACET1TAB25 PO (11:05)
[2021-05-01] MEDS ORDERED: INSLAN SQ (11:05)
[2021-05-01] MEDS ORDERED: LINA145C PO (11:05)
[2021-05-01] MEDS ORDERED: LACT10SO32 PO (11:05)
[2021-05-01] MEDS ORDERED: APIX5TAB PO (11:05)
[2021-05-01] MEDS ORDERED: DICY20TA3 PO (11:05)
[2021-05-01] MEDS ORDERED: HYDR12.54 PO (11:05)
[2021-05-01] MEDS ORDERED: PANT40TA55 PO (11:05)
[2021-05-01] MEDS ORDERED: MACR100 PO (11:05)
[2021-05-01] MEDS ORDERED: CRAN250T2 PO (11:05)
[2021-05-01] MEDS ORDERED: CETI10TA87 PO (11:05)
[2021-05-01] MEDS ORDERED: TRAZ-185 PO (11:05)
[2021-05-01] MEDS ORDERED: PREG300C PO (11:05)
[2021-05-01] MEDS ORDERED: SUCR1ORA15 PO ×2 (11:05→13:31)
[2021-05-01] MEDS ORDERED: FLUT16H NASAL (11:05)
[2021-05-01] MEDS ORDERED: LISI10TA24 PO (11:05)
== END 2021-01-01 14:47 | disposition home or self-care (01) ==
LOC: EDH 10:30
DX: K52.9 Noninfective gastroenteritis and colitis, unspecified (principal); E87.6 Hypokalemia; N39.0 Urinary tract infection, site not specified; Z20.822 Contact with and (suspected) exposure to COVID-19; E11.9 Type 2 diabetes mellitus without complications; F31.9 Bipolar disorder, unspecified; I10 Essential (primary) hypertension; Z88.0 Allergy status to penicillin; Z88.8 Allergy status to other drugs, medicaments and biological substances; Z90.710 Acquired absence of both cervix and uterus
CPT/HCPCS: 36415; 74177; 80053; 81001; 82150; 83690; 85025; 87040 ×2; 87077; 87088; 87186; 87426; 96361; 96374; 99285; J2405; J7030; Q9967; U0003

== ENCOUNTER 2021-01-07 11:01 | Emergency (ER) | payer MEDICARE ==
[2021-01-07] MEDS ORDERED: ZOSYN 3.375GM+NS 50ML 50 ML IV ONE (11:58)
[2021-01-07 12:05] LABS: BASOPHILS % (AUTO) 0.5 % (0.0-5.0); EOSINOPHILS % (AUTO) 3.6 % (0.0-8.0); LYMPHOCYTES % (AUTO) 16.6 % (21.0-51.0); MEAN CORPUSCULAR HEMOGLOBIN 28.5 pg (27.0-33.0); MEAN CORPUSCULAR VOLUME 89.1 fL (79-99); MONOCYTES % (AUTO) 11.2 % (3.0-13.0); NEUTROPHILS % (AUTO) 67.8 % (40.0-77.0); PLATELET COUNT (AUTO) 202 K/uL (130-400); RED BLOOD CELL COUNT(AUTO) 3.93 MIL/uL (4.00-5.50); WHITE BLOOD COUNT (AUTO) 3.9 K/uL (4.8-10.8)
[2021-01-07 12:15] LABS: INR 1.12 (0.85-1.15); PROTHROMBIN TIME 12.1 SEC (9.6-11.6)
[2021-01-07 12:16] LABS: PARTIAL THROMBOPLASTIN TIME 29.3 SEC (26.3-35.5)
[2021-01-07 12:25] LABS: ALANINE AMINOTRANSFERASE 18 U/L (12-78); ALBUMIN 3.1 g/dL (3.5-5.0); ASPARTATE AMINOTRANSFERASE 24 U/L (10-37); BILIRUBIN,TOTAL 0.3 mg/dL (0.2-1.0); CARBON DIOXIDE 33 mmol/L (21-32); CHLORIDE 105 mmol/L (101-111); CREATINE KINASE, TOTAL 168 U/L (21-232); CREATININE 1.1 mg/dL (0.5-1.5); GLOMERULAR FILTR. RATE CALC 52 mL/min (>60); GLUCOSE,RANDOM 142 mg/dL (70-105); MYOGLOBIN 115 ng/mL (10-92); SODIUM SERUM 142 mmol/L (136-145); TOTAL PROTEIN, SERUM 6.7 g/dL (6.0-8.3); TROPONIN I < 0.04 ng/mL (0.00-0.06); UREA NITROGEN, BLOOD 11 mg/dL (7-18)
[2021-01-07 12:29] LABS: POTASSIUM 2.9 mmol/L (3.5-5.1)
[2021-01-07] MEDS ORDERED: POTASSIUM BICARB/CIT AC 25 MEQ TABLET.EFF ONE (13:46)
[2021-01-07 14:12] LABS: APPEARANCE,URINE Clear (CLEAR); BILIRUBIN,URINE Negative (NEGATIVE); COLOR,URINE Yellow (YELLOW); GLUCOSE, URINE (UA) Negative (NEGATIVE); KETONES,URINE Negative (NEGATIVE); LEUKOCYTE ESTERASE ,URINE Small (NEGATIVE); NITRATE,URINE Negative (NEGATIVE); OCCULT BLOOD,URINE Negative (NEGATIVE); PH,URINE 7.5 (5.0-8.0); PROTEIN,URINE Negative (NEGATIVE); UROBILINOGEN,URINE 0.2 mg/dL (0.2-1.0)
[2021-01-07 14:41] LABS: BACTERIA,URINE Rare /HPF (None Seen); RBC,URINE 0-1 /HPF (0-1); SQUAMOUS EPITHELIAL CELL,UR Rare /HPF (0-2); TRANSITIONAL EPI CELLS,URINE Rare /HPF (None Seen)
[2021-05-01] MEDS ORDERED: MACR100 PO (11:05)
[2021-05-01] MEDS ORDERED: CRAN250T2 PO (11:05)
[2021-05-01] MEDS ORDERED: LACT10SO32 PO (11:05)
[2021-05-01] MEDS ORDERED: CETI10TA87 PO (11:05)
[2021-05-01] MEDS ORDERED: PREG300C PO (11:05)
[2021-05-01] MEDS ORDERED: HYDR12.54 PO (11:05)
[2021-05-01] MEDS ORDERED: ACET1TAB25 PO (11:05)
[2021-05-01] MEDS ORDERED: DOCU-116 PO (11:05)
[2021-05-01] MEDS ORDERED: INSLAN SQ (11:05)
[2021-05-01] MEDS ORDERED: SUCR1ORA15 PO ×2 (11:05→13:31)
[2021-05-01] MEDS ORDERED: TRAZ-185 PO (11:05)
[2021-05-01] MEDS ORDERED: APIX5TAB PO (11:05)
[2021-05-01] MEDS ORDERED: FLUT16H NASAL (11:05)
[2021-05-01] MEDS ORDERED: PANT40TA55 PO (11:05)
[2021-05-01] MEDS ORDERED: LISI10TA24 PO (11:05)
[2021-05-01] MEDS ORDERED: DICY20TA3 PO (11:05)
[2021-05-01] MEDS ORDERED: LINA145C PO (11:05)
== END 2021-01-07 16:24 | disposition left against medical advice (07) ==
LOC: EDH 11:01
DX: N39.0 Urinary tract infection, site not specified (principal); E87.6 Hypokalemia; E11.65 Type 2 diabetes mellitus with hyperglycemia; F31.9 Bipolar disorder, unspecified; I48.91 Unspecified atrial fibrillation; Z88.0 Allergy status to penicillin; Z88.8 Allergy status to other drugs, medicaments and biological substances; Z90.710 Acquired absence of both cervix and uterus; Z98.890 Other specified postprocedural states; Z86.73 Personal history of transient ischemic attack (TIA), and cerebral infarction without residual deficits
CPT/HCPCS: 36415; 71045; 80053; 81001; 82550; 83605; 83874; 84145; 84484; 85025; 85610; 85730; 87040 ×2; 87088; 93005; 96365; 99285; J2543

== ENCOUNTER → 2021-03-12 | Outpatient (CLI) | payer MEDICARE ==
[~2021-03-12] MED LIST changes: -DOCU-270 PO; +DOCU-275 PO; -POTA-10 PO; +POTA-9 PO
== END | disposition home or self-care (01) ==
LOC: SHCH 12:53
PROVIDERS: ATTEND Internal Medicine Cardiovascular Disease
DX: I87.2 Venous insufficiency (chronic) (peripheral) (principal)
CPT/HCPCS: 93970

== ENCOUNTER 2021-03-24 12:57 | Inpatient (IN) | payer MEDICARE ==
[~2021-03-24] VITALS: Ht 152.4 cm; Wt 127.9 kg
[~2021-03-24 12:57] MED LIST changes: +DOCU-270 PO; -DOCU-275 PO; +POTA-10 PO; -POTA-9 PO
[2021-03-24] MEDS ORDERED: ONDANSETRON 4MG INJ ONE ×2 (13:10→22:57)
[2021-03-24] MEDS ORDERED: 0.9%NACL 1000ML 1,000 ML IV ONE ×3 (13:10→17:39)
[2021-03-24 13:14] LABS: BASOPHILS % (AUTO) 0.3 % (0.0-5.0); EOSINOPHILS % (AUTO) 0.3 % (0.0-8.0); HEMATOCRIT 29.8 % (36-48); LYMPHOCYTES % (AUTO) 13.5 % (21.0-51.0); MEAN CORPUSCULAR HEMOGLOBIN 27.8 pg (27.0-33.0); MEAN CORPUSCULAR HGB CONC 31.9 g/dL (32.0-36.0); MEAN CORPUSCULAR VOLUME 87.1 fL (79-99); MONOCYTES % (AUTO) 8.8 % (3.0-13.0); NEUTROPHILS % (AUTO) 76.5 % (40.0-77.0); PLATELET COUNT (AUTO) 186 K/uL (130-400); RED BLOOD CELL COUNT(AUTO) 3.42 MIL/uL (4.00-5.50); RED CELL DISTRIBUTION WIDTH 14.8 % (11.0-15.5); WHITE BLOOD COUNT (AUTO) 6.5 K/uL (4.8-10.8)
[2021-03-24 13:26] LABS: INR 1.09 (0.85-1.15); PROTHROMBIN TIME 11.8 SEC (9.6-11.6)
[2021-03-24 13:27] LABS: PARTIAL THROMBOPLASTIN TIME 28.8 SEC (26.3-35.5)
[2021-03-24 13:39] LABS: CREATININE 1.2 mg/dL (0.5-1.5); POTASSIUM 3.9 mmol/L (3.5-5.1)
[2021-03-24 13:44] LABS: ALBUMIN 3.2 g/dL (3.5-5.0); BILIRUBIN,TOTAL 0.4 mg/dL (0.2-1.0)
[2021-03-24 14:18] LABS: APPEARANCE,URINE CLEAR (CLEAR); BILIRUBIN,URINE SMALL (NEGATIVE); COLOR,URINE YELLOW (YELLOW); GLUCOSE, URINE (UA) NEGATIVE (NEGATIVE); KETONES,URINE 5 mg/dL (NEGATIVE); LEUKOCYTE ESTERASE ,URINE SMALL (NEGATIVE); NITRATE,URINE NEGATIVE (NEGATIVE); OCCULT BLOOD,URINE TRACE-INTACT (NEGATIVE); PH,URINE 6.5 (5.0-8.0); PROTEIN,URINE 30 mg/dL (NEGATIVE)
[2021-03-24 14:31] LABS: BACTERIA,URINE Rare /HPF (None Seen); MUCUS,URINE Few LPF (None Seen); RBC,URINE 0-1 /HPF (0-1); SQUAMOUS EPITHELIAL CELL,UR Rare /HPF (0-2)
[2021-03-24] MEDS ORDERED: MORPHINE 4 MG SYG ONE ×2 (15:16→22:58)
[2021-03-24] MEDS: 0.9%NACL 1000ML 1,000 ML IV SCH (15:45)
[2021-03-24] MEDS ORDERED: LACTULOSE 20 GM/30 ML UDCUP PO PRN (15:45)
[2021-03-24] MEDS ORDERED: ACETAMINOPHEN 325 MG TAB PO PRN ×2 (15:45)
[2021-03-24 19:12] LABS: HEMATOCRIT 27.1 % (36-48)
[2021-03-24] MEDS: PANTOPRAZOLE 40 MG/VIAL IVP SCH (21:00)
[2021-03-24] MEDS ORDERED: FAMOTIDINE 20MG VIAL IV SCH (21:00)
[2021-03-24] MEDS ORDERED: PANTOPRAZOLE 40 MG/VIAL ONE (23:21)
[2021-03-25] VITALS (7 sets, daily range): BP systolic 126–139; BP diastolic 41–87
[2021-03-25 00:52] LABS: HEMATOCRIT 26.9 % (36-48)
[2021-03-25] MEDS ORDERED: INSU200I SQ (01:08)
[2021-03-25] MEDS ORDERED: FLUT16H NS (01:10)
[2021-03-25] MEDS ORDERED: LISI10TA24 PO (01:24)
[2021-03-25] MEDS ORDERED: ACET1TAB25 PO (01:24)
[2021-03-25] MEDS ORDERED: HYDR12.54 PO (01:24)
[2021-03-25] MEDS ORDERED: CRAN250T2 PO (01:24)
[2021-03-25] MEDS ORDERED: APIX5TAB PO (01:24)
[2021-03-25] MEDS ORDERED: DICY20TA3 PO (01:24)
[2021-03-25] MEDS ORDERED: TRAZ-185 PO (01:24)
[2021-03-25] MEDS ORDERED: CYCL5TAB PO (01:24)
[2021-03-25] MEDS ORDERED: CETI10TA57 PO (01:24)
[2021-03-25] MEDS ORDERED: LINA145C PO (01:24)
[2021-03-25] MEDS ORDERED: HYDR50CA50 PO (01:24)
[2021-03-25] MEDS ORDERED: SUCR1TAB2 PO (01:24)
[2021-03-25] MEDS: MORPHINE 2 MG SYG IV PRN ×4 (03:17→21:45)
[2021-03-25] MEDS: 0.9%NACL 1000ML 1,000 ML IV SCH ×2 (04:35→18:25)
[2021-03-25 05:44] LABS: BASOPHILS % (AUTO) 0.2 % (0.0-5.0); EOSINOPHILS % (AUTO) 1.5 % (0.0-8.0); HEMATOCRIT 26.3 % (36-48); LYMPHOCYTES % (AUTO) 15.2 % (21.0-51.0); MEAN CORPUSCULAR HEMOGLOBIN 26.7 pg (27.0-33.0); MEAN CORPUSCULAR VOLUME 88.9 fL (79-99); MONOCYTES % (AUTO) 13.5 % (3.0-13.0); PLATELET COUNT (AUTO) 143 K/uL (130-400); RED BLOOD CELL COUNT(AUTO) 2.96 MIL/uL (4.00-5.50); RED CELL DISTRIBUTION WIDTH 14.6 % (11.0-15.5); WHITE BLOOD COUNT (AUTO) 4.7 K/uL (4.8-10.8)
[2021-03-25 05:51] LABS: CREATININE 0.8 mg/dL (0.5-1.5); POTASSIUM 4.1 mmol/L (3.5-5.1)
[2021-03-25] MEDS: INSULIN HUMULIN R 100 UNIT/ML 3ML SQ SCH ×4 (05:59→18:00)
[2021-03-25] MEDS: PANTOPRAZOLE 40 MG/VIAL IVP SCH ×2 (08:41→21:05)
[2021-03-25] MEDS ORDERED: LORAZEPAM 2 MG/ML 1 ML VIAL IVP ONE (11:45)
[2021-03-25] MEDS ORDERED: HONEY 1 APPL/ML TUBE TP SCH (13:15)
[2021-03-25] MEDS: ONDANSETRON 4MG INJ IV PRN ×2 (14:12→21:45)
[2021-03-25] MEDS: PROMETHAZINE HCL 25 MG/ML 1ML AMPULE IM PRN (17:00)
[2021-03-26] VITALS (20 sets, daily range): BP systolic 89–152; BP diastolic 25–69
[2021-03-26] MEDS: PROMETHAZINE HCL 25 MG/ML 1ML AMPULE IM PRN (01:32)
[2021-03-26] MEDS: MORPHINE 2 MG SYG IV PRN ×3 (03:42→21:30)
[2021-03-26] MEDS: ONDANSETRON 4MG INJ IV PRN (03:42)
[2021-03-26 05:54] LABS: BASOPHILS % (AUTO) 0.2 % (0.0-5.0); LYMPHOCYTES % (AUTO) 16.3 % (21.0-51.0); MEAN CORPUSCULAR HEMOGLOBIN 27.1 pg (27.0-33.0); MEAN CORPUSCULAR HGB CONC 30.4 g/dL (32.0-36.0); MEAN CORPUSCULAR VOLUME 89.3 fL (79-99); MONOCYTES % (AUTO) 12.1 % (3.0-13.0); NEUTROPHILS % (AUTO) 68.9 % (40.0-77.0); PLATELET COUNT (AUTO) 141 K/uL (130-400); RED CELL DISTRIBUTION WIDTH 14.4 % (11.0-15.5); WHITE BLOOD COUNT (AUTO) 4.1 K/uL (4.8-10.8)
[2021-03-26] MEDS: INSULIN HUMULIN R 100 UNIT/ML 3ML SQ SCH ×4 (06:00→18:00)
[2021-03-26 06:10] LABS: CREATININE 0.8 mg/dL (0.5-1.5)
[2021-03-26] MEDS ORDERED: KETAMINE 50MG/ML SYRINGE 50 MG/ML DISP.SYRIN IV ONE (08:24)
[2021-03-26] MEDS ORDERED: LIDOCAINE PF 100MG/5ML (2%) SYRINGE 5ML ONE (08:24)
[2021-03-26] MEDS ORDERED: PROPOFOL 10 MG/ML 20ML VIAL IV ONE (08:24)
[2021-03-26] MEDS ORDERED: MIDAZOLAM HCL 1 MG/ML 2ML VIAL ONE (08:24)
[2021-03-26] MEDS ORDERED: ESMOLOL HCL 10 MG/ML 10 ML VIAL ONE (08:26)
[2021-03-26] MEDS ORDERED: GLYCOPYRROLATE 1 MG/5 ML SYRINGE ONE (08:26)
[2021-03-26] MEDS: 0.9%NACL 1000ML 1,000 ML IV SCH ×2 (12:55→20:44)
[2021-03-26] MEDS: PANTOPRAZOLE 40 MG/VIAL IVP SCH ×2 (12:55→20:43)
[2021-03-26] MEDS ORDERED: **HM**(Hydroxyzine Pamoate 50 MG PO PRN (16:45)
[2021-03-26] MEDS: SUCRALFATE 1 GM TABLET PO SCH (16:58)
[2021-03-26 17:22] LABS: HEMATOCRIT 26.9 % (36-48)
[2021-03-26] MEDS ORDERED: TRAZODONE HCL 50 MG TAB PO SCH (21:00)
[2021-03-27] VITALS: BP 145/42
[2021-03-27] MEDS ORDERED: LORAZEPAM 2 MG/ML 1 ML VIAL ONE (01:32)
[2021-03-27] MEDS ORDERED: LORAZEPAM 2 MG/ML 1 ML VIAL IVP ONE (01:45)
[2021-03-27 04:00] VITALS: BP 148/48
[2021-03-27] MEDS: INSULIN HUMULIN R 100 UNIT/ML 3ML SQ SCH ×3 (06:00→12:00)
[2021-03-27 06:14] LABS: EOSINOPHILS % (AUTO) 1.1 % (0.0-8.0); HEMATOCRIT 24.8 % (36-48); LYMPHOCYTES % (AUTO) 11.4 % (21.0-51.0); MEAN CORPUSCULAR HEMOGLOBIN 28.1 pg (27.0-33.0); MEAN CORPUSCULAR HGB CONC 31.5 g/dL (32.0-36.0); MEAN CORPUSCULAR VOLUME 89.2 fL (79-99); MONOCYTES % (AUTO) 10.3 % (3.0-13.0); NEUTROPHILS % (AUTO) 76.5 % (40.0-77.0); PLATELET COUNT (AUTO) 136 K/uL (130-400); RED BLOOD CELL COUNT(AUTO) 2.78 MIL/uL (4.00-5.50); RED CELL DISTRIBUTION WIDTH 14.7 % (11.0-15.5); WHITE BLOOD COUNT (AUTO) 4.4 K/uL (4.8-10.8)
[2021-03-27 06:24] LABS: CREATININE 0.8 mg/dL (0.5-1.5); MAGNESIUM 1.8 mg/dL (1.80-2.40); POTASSIUM 3.8 mmol/L (3.5-5.1)
[2021-03-27] MEDS: SUCRALFATE 1 GM TABLET PO SCH ×2 (07:16→11:40)
[2021-03-27] MEDS: MORPHINE 2 MG SYG IV PRN ×2 (07:16→11:41)
[2021-03-27] MEDS ORDERED: **HM**(Linaclotide (Linzess) 145 MCG PO SCH (09:00)
[2021-03-27] MEDS ORDERED: CETIRIZINE HCL 5 MG TABLET PO SCH (09:00)
[2021-03-27] MEDS ORDERED: HYDROCHLOROTHIAZIDE 25 MG TABLET PO SCH (09:00)
[2021-03-27] MEDS ORDERED: CRANBERRY FRUIT 250 MG PO SCH (09:00)
[2021-03-27] MEDS: PANTOPRAZOLE 40 MG/VIAL IVP SCH (09:52)
[2021-03-27 09:55] VITALS: BP 143/49
[2021-03-27] MEDS ORDERED: PANT40TA55 PO (11:09)
[2021-03-27 12:00] VITALS: BP 150/56
[2021-05-01] MEDS ORDERED: CRAN250T2 PO (11:05)
[2021-05-01] MEDS ORDERED: MACR100 PO (11:05)
[2021-05-01] MEDS ORDERED: TRAZ-185 PO (11:05)
[2021-05-01] MEDS ORDERED: LACT10SO32 PO (11:05)
[2021-05-01] MEDS ORDERED: FLUT16H NASAL (11:05)
[2021-05-01] MEDS ORDERED: INSLAN SQ (11:05)
[2021-05-01] MEDS ORDERED: PANT40TA55 PO (11:05)
[2021-05-01] MEDS ORDERED: CETI10TA87 PO (11:05)
[2021-05-01] MEDS ORDERED: HYDR12.54 PO (11:05)
[2021-05-01] MEDS ORDERED: APIX5TAB PO (11:05)
[2021-05-01] MEDS ORDERED: LINA145C PO (11:05)
[2021-05-01] MEDS ORDERED: DOCU-116 PO (11:05)
[2021-05-01] MEDS ORDERED: DICY20TA3 PO (11:05)
[2021-05-01] MEDS ORDERED: PREG300C PO (11:05)
[2021-05-01] MEDS ORDERED: SUCR1ORA15 PO ×2 (11:05→13:31)
[2021-05-01] MEDS ORDERED: LISI10TA24 PO (11:05)
[2021-05-01] MEDS ORDERED: ACET1TAB25 PO (11:05)
== END 2021-03-27 15:30 | disposition home or self-care (01) | DRG 378 ==
LOC: EDH 12:57 → EDHIP 15:36 → OBSVTOIN 15:36 → 3AH 22:00
PROVIDERS: ADMIT Internal Medicine; ATTEND Internal Medicine
PROC: 0W3P8ZZ Control Bleeding in Gastrointestinal Tract, Via Natural or Artificial Opening Endoscopic (ICD-10-PCS; principal; 2021-03-26)
DX: K31.811 Angiodysplasia of stomach and duodenum with bleeding (principal); K56.609 Unspecified intestinal obstruction, unspecified as to partial versus complete obstruction; E87.2 Acidosis; Z68.43 Body mass index [BMI] 50.0-59.9, adult; D62 Acute posthemorrhagic anemia; L03.115 Cellulitis of right lower limb; L97.919 Non-pressure chronic ulcer of unspecified part of right lower leg with unspecified severity; N39.0 Urinary tract infection, site not specified; I48.91 Unspecified atrial fibrillation; Z79.01 Long term (current) use of anticoagulants; E11.9 Type 2 diabetes mellitus without complications; E66.01 Morbid (severe) obesity due to excess calories; G51.0 Bell's palsy; I10 Essential (primary) hypertension; L98.429 Non-pressure chronic ulcer of back with unspecified severity; Z86.73 Personal history of transient ischemic attack (TIA), and cerebral infarction without residual deficits; I25.10 Atherosclerotic heart disease of native coronary artery without angina pectoris; Z87.440 Personal history of urinary (tract) infections; Z90.49 Acquired absence of other specified parts of digestive tract; Z90.710 Acquired absence of both cervix and uterus; Z88.0 Allergy status to penicillin; K64.9 Unspecified hemorrhoids; Z86.718 Personal history of other venous thrombosis and embolism; Z74.01 Bed confinement status; Z20.822 Contact with and (suspected) exposure to COVID-19
CPT/HCPCS: 36415; 43255; 45388; 71045; 74018; 74176; 80048; 80053; 81001; 82270; 82948; 83605; 83690; 83735; 84484; 85014; 85018; 85025; 85610; 85730; 86850; 86900; 86901; 86922; 87426; 93005; C9113; G0378; J2001; J2060; J2250; J2270; J2405; J2550; J2704; J3490; J7030; U0003

== ENCOUNTER 2021-05-11 22:51 | Emergency (ER) | payer MEDICARE ==
[~2021-05-11] VITALS: Ht 152.4 cm; Wt 124.3 kg
[~2021-05-11 22:51] MED LIST changes: +ACET1TAB25 PO; +APIX5TAB PO; -ASPI-556 PO; +CETI10TA86 PO; +CRAN250T2 PO; -DICY10CA13 PO; +DICY20TA11 PO; +DOCU-116 PO; -DOCU-270 PO; -ERGO50CA PO; +FLUT16H NASAL; -FURO20TA4 PO; -HYDR-4060 PO; +HYDR12.54 PO; +LACT10SO32 PO; +LINA145C PO; +LISI10TA24 PO; +MACR100 PO; -PANT40TA54 PO; +PANT40TA55 PO; -POTA-10 PO; +SUCR1ORA15 PO; +TRAZ-185 PO
[2021-05-12] VITALS: BP 166/81
[2021-05-12 03:00] VITALS: BP 147/63
[2021-05-12] MEDS ORDERED: MEROPENEM 1 GM VIAL IVP SCH (03:45)
[2021-05-12] MEDS ORDERED: MEROPENEM 1 GM VIAL ONE (03:52)
== END 2021-05-12 05:49 | disposition home or self-care (01) ==
LOC: EDH 23:09
DX: T82.594A Other mechanical complication of infusion catheter, initial encounter (principal); K21.9 Gastro-esophageal reflux disease without esophagitis; I10 Essential (primary) hypertension; E66.9 Obesity, unspecified; E11.9 Type 2 diabetes mellitus without complications; Z79.4 Long term (current) use of insulin; Z79.01 Long term (current) use of anticoagulants; Z88.0 Allergy status to penicillin; Z88.8 Allergy status to other drugs, medicaments and biological substances; Z79.899 Other long term (current) drug therapy; Z68.43 Body mass index [BMI] 50.0-59.9, adult
CPT/HCPCS: 71045; 96374; 99283; J2185

== ENCOUNTER 2022-04-19 11:52 | Emergency (ER) | payer OTHER, MEDICARE ==
[~2022-04-19] VITALS: Ht 154.9 cm; Wt 120.2 kg
[~2022-04-19 11:52] MED LIST changes: +ACET-2079 PO; -ACET1TAB25 PO; -CETI10TA86 PO; +CETI10TA87 PO; -DICY20TA11 PO; +DICY20TA3 PO
[2022-04-19 12:20] VITALS: BP 113/44
[2022-04-19] MEDS ORDERED: MORPHINE 4 MG SYG IVP ONE (12:30)
[2022-04-19] MEDS ORDERED: ONDANSETRON 4MG INJ IVP ONE (12:30)
[2022-04-19] MEDS ORDERED: 0.9%NACL 1000ML 1,000 ML IV ONE (12:30)
[2022-04-19] MEDS ORDERED: FAMOTIDINE 20MG VIAL IV ONE (12:30)
[2022-04-19 12:45] LABS: BASOPHILS % (AUTO) 0.2 % (0.0-5.0); EOSINOPHILS % (AUTO) 0.5 % (0.0-8.0); HEMATOCRIT 36.2 % (36-48); LYMPHOCYTES % (AUTO) 15.2 % (21.0-51.0); MEAN CORPUSCULAR HGB CONC 30.4 g/dL (32.0-36.0); MEAN CORPUSCULAR VOLUME 95.5 fL (79-99); MONOCYTES % (AUTO) 12.8 % (3.0-13.0); PLATELET COUNT (AUTO) 159 K/uL (130-400); RED BLOOD CELL COUNT(AUTO) 3.79 MIL/uL (4.00-5.50); RED CELL DISTRIBUTION WIDTH 13.5 % (11.0-15.5); WHITE BLOOD COUNT (AUTO) 6.3 K/uL (4.8-10.8)
[2022-04-19 13:11] LABS: ALBUMIN 2.7 g/dL (3.5-5.0); BILIRUBIN,TOTAL 0.3 mg/dL (0.2-1.0); CREATININE 0.8 mg/dL (0.5-1.5); POTASSIUM 3.8 mmol/L (3.5-5.1); TOTAL PROTEIN, SERUM 6.2 g/dL (6.0-8.3)
[2022-04-19 13:28] LABS: APPEARANCE,URINE Cloudy (CLEAR); BILIRUBIN,URINE Negative (NEGATIVE); COLOR,URINE Yellow (YELLOW); GLUCOSE, URINE (UA) Negative (NEGATIVE); KETONES,URINE 15 mg/dL (NEGATIVE); LEUKOCYTE ESTERASE ,URINE Large (NEGATIVE); NITRATE,URINE Positive (NEGATIVE); OCCULT BLOOD,URINE Negative (NEGATIVE); PH,URINE 6.5 (5.0-8.0); PROTEIN,URINE POS 1+ mg/dL (NEGATIVE)
[2022-04-19 13:45] LABS: BACTERIA,URINE Many /HPF (None Seen); RBC,URINE 0-1 /HPF (0-1); SQUAMOUS EPITHELIAL CELL,UR Rare /HPF (0-2); WBC,URINE 26-50 /HPF (0-1)
[2022-04-19] MEDS ORDERED: CEPH500B PO (14:24)
[2022-04-19] MEDS ORDERED: ONDA4TAB10 PO (14:24)
[2022-04-19] MEDS ORDERED: CEFTRIAXONE 1G VIAL IVP ONE (14:30)
== END 2022-04-19 14:42 | disposition home or self-care (01) ==
LOC: EDH 11:52
DX: N39.0 Urinary tract infection, site not specified (principal); E78.00 Pure hypercholesterolemia, unspecified; I10 Essential (primary) hypertension; E11.51 Type 2 diabetes mellitus with diabetic peripheral angiopathy without gangrene; Z79.01 Long term (current) use of anticoagulants; Z88.0 Allergy status to penicillin; Z79.899 Other long term (current) drug therapy
CPT/HCPCS: 36415; 74177; 80053; 81001; 83690; 84484; 85025; 87077; 87088; 87186; 93005 ×2; 96361; 96374; 96375; 99285; J0696; J2270; J2405; J3490

== ENCOUNTER 2022-05-18 11:07 | Emergency (ER) | payer OTHER ==
[~2022-05-18] VITALS: Ht 152.4 cm; Wt 122.5 kg
[~2022-05-18 11:07] MED LIST changes: +CEPH500B PO; +ONDA4TAB10 PO
[2022-05-18] MEDS ORDERED: MORPHINE 2 MG SYG ONE (14:10)
[2022-05-18] MEDS ORDERED: ONDANSETRON ODT 4MG TAB ONE (14:10)
[2022-05-18] MEDS ORDERED: ONDANSETRON ODT 4MG TAB SL ONE (14:30)
[2022-05-18] MEDS ORDERED: MORPHINE 2 MG SYG IVP ONE (14:30)
[2022-05-18 16:12] VITALS: BP 141/54
== END 2022-05-18 16:37 | disposition home or self-care (01) ==
LOC: EDH 11:07
DX: G89.29 Other chronic pain (principal); M54.9 Dorsalgia, unspecified; F32.A Depression, unspecified; F41.9 Anxiety disorder, unspecified; I10 Essential (primary) hypertension; I48.91 Unspecified atrial fibrillation; E11.51 Type 2 diabetes mellitus with diabetic peripheral angiopathy without gangrene; Z88.0 Allergy status to penicillin; Z79.01 Long term (current) use of anticoagulants; Z79.899 Other long term (current) drug therapy; Z86.73 Personal history of transient ischemic attack (TIA), and cerebral infarction without residual deficits
CPT/HCPCS: 72125; 72128; 96374

== ENCOUNTER 2022-06-03 05:00 | Emergency (ER) | payer OTHER ==
[~2022-06-03] VITALS: Ht 152.4 cm; Wt 120.7 kg
[2022-06-03 05:47] LABS: BASOPHILS % (AUTO) 0.2 % (0.0-5.0); EOSINOPHILS % (AUTO) 1.3 % (0.0-8.0); HEMATOCRIT 41.4 % (36-48); LYMPHOCYTES % (AUTO) 13.5 % (21.0-51.0); MEAN CORPUSCULAR HEMOGLOBIN 29.5 pg (27.0-33.0); MEAN CORPUSCULAR HGB CONC 32.1 g/dL (32.0-36.0); MEAN CORPUSCULAR VOLUME 91.8 fL (79-99); MONOCYTES % (AUTO) 12.6 % (3.0-13.0); NEUTROPHILS % (AUTO) 72.2 % (40.0-77.0); PLATELET COUNT (AUTO) 144 K/uL (130-400); RED BLOOD CELL COUNT(AUTO) 4.51 MIL/uL (4.00-5.50); RED CELL DISTRIBUTION WIDTH 13.2 % (11.0-15.5); WHITE BLOOD COUNT (AUTO) 4.5 K/uL (4.8-10.8)
[2022-06-03] MEDS ORDERED: PROMETHAZINE HCL 25 MG/ML 1ML AMPULE IM ONE (06:00)
[2022-06-03] MEDS ORDERED: MORPHINE 4 MG SYG IM ONE (06:00)
[2022-06-03 06:12] LABS: ALBUMIN 2.9 g/dL (3.5-5.0); BILIRUBIN,TOTAL 0.2 mg/dL (0.2-1.0); CREATININE 0.9 mg/dL (0.5-1.5); POTASSIUM 4.3 mmol/L (3.5-5.1); TOTAL PROTEIN, SERUM 6.8 g/dL (6.0-8.3)
[2022-06-03 06:53] LABS: APPEARANCE,URINE CLEAR (CLEAR); BILIRUBIN,URINE NEGATIVE (NEGATIVE); COLOR,URINE YELLOW (YELLOW); GLUCOSE, URINE (UA) NEGATIVE (NEGATIVE); KETONES,URINE NEGATIVE (NEGATIVE); LEUKOCYTE ESTERASE ,URINE NEGATIVE (NEGATIVE); NITRATE,URINE NEGATIVE (NEGATIVE); OCCULT BLOOD,URINE NEGATIVE (NEGATIVE); PROTEIN,URINE NEGATIVE (NEGATIVE); UROBILINOGEN,URINE 0.2 mg/dL (0.2-1.0)
[2022-06-03] MEDS ORDERED: MAGNESIUM CITRATE 296 ML SOLUTION PO ONE (09:00)
[2022-06-03 10:49] VITALS: BP 122/44
== END 2022-06-03 11:30 | disposition home or self-care (01) ==
LOC: EDH 05:00
DX: R10.11 Right upper quadrant pain (principal); R11.0 Nausea; E78.00 Pure hypercholesterolemia, unspecified; I10 Essential (primary) hypertension; F32.A Depression, unspecified; I48.91 Unspecified atrial fibrillation; M19.90 Unspecified osteoarthritis, unspecified site; E11.51 Type 2 diabetes mellitus with diabetic peripheral angiopathy without gangrene; Z88.0 Allergy status to penicillin; Z79.01 Long term (current) use of anticoagulants; Z79.899 Other long term (current) drug therapy; Z86.73 Personal history of transient ischemic attack (TIA), and cerebral infarction without residual deficits; Z90.49 Acquired absence of other specified parts of digestive tract
CPT/HCPCS: 36415; 71045; 74176; 80053; 81003; 82150; 82550; 83605; 83735; 84484; 85025; 87040 ×2; 93005; 96372 ×2; 99285; J2270; J2550

== ENCOUNTER 2022-07-24 06:02 | Day surgery (SDC) | payer OTHER, MEDICARE ==
[2022-07-23 16:48] LABS: PROTHROMBIN TIME 10.9 SEC (9.6-11.6)
[2022-07-23 16:49] LABS: PARTIAL THROMBOPLASTIN TIME 30.7 SEC (26.3-35.5)
[2022-07-23 17:49] VITALS: BP 143/58
[2022-07-24] VITALS (21 sets, daily range): BP systolic 116–199; BP diastolic 43–71
[~2022-07-24] VITALS: Ht 152.4 cm; Wt 114.8 kg
[~2022-07-24 06:02] MED LIST changes: +ACET325C6 PO; +BACL10TA PO; +CARAL PO; -CEPH500B PO; +CETI10TA57 PO; -CETI10TA87 PO; -CRAN250T2 PO; +DICL100G31 TP; -DICY20TA3 PO; +FERR-82 PO; +FURO20TA6 PO; +GUAI100S13 PO; -HYDR12.54 PO; -INSLAN SQ; +INSU100I45 SQ; +INSU100V50 SQ; -LACT10SO32 PO; +LACT10SO9 PO; +LIDOP TP; -LINA145C PO; +LINA290C PO; +LOPE-210 PO; -MACR100 PO; +ONDA22I PO; -ONDA4TAB10 PO; +OXCA300T28 PO; +PANT40TA PO; -PANT40TA55 PO; +POTA-202 PO; -SUCR1ORA15 PO
[2022-07-24] MEDS ORDERED: 0.9%NACL 1000ML 1,000 ML IV ONE (06:20)
[2022-07-24] MEDS ORDERED: HEPARIN 10,000 UNIT/10ML (1,000 UNIT/ML) VIAL ONE (07:19)
[2022-07-24] MEDS ORDERED: LIDOCAINE HCL 1% 20 ML VIAL ONE (07:19)
[2022-07-24] MEDS ORDERED: IOHEXOL-350 75 ML VIAL IV ONE (07:19)
[2022-07-24] MEDS ORDERED: IOHEXOL 350 MG/ML 100ML INFUS..BTL IV ONE (07:19)
[2022-07-24] MEDS ORDERED: MIDAZOLAM HCL 1 MG/ML 2ML VIAL ONE (07:19)
[2022-07-24] MEDS ORDERED: FENTANYL CITRATE PF 50 MCG/1 ML 2ML VIAL ONE (07:20)
[2022-07-24] MEDS ORDERED: CLOPIDOGREL 300MG TAB ONE (08:46)
[2022-07-24] MEDS ORDERED: GLUCAGON 1MG KIT 1 MG ML IM PRN (09:00)
[2022-07-24] MEDS ORDERED: NITROGLYCERIN 0.4 MG SL TAB SL PRN (09:00)
[2022-07-24] MEDS ORDERED: DEXTROSE 50%-WATER 50 ML DISP.SYRIN IV PRN (09:00)
[2022-07-24] MEDS ORDERED: 0.9%NACL 1000ML 1,000 ML IV SCH (09:00)
[2022-07-24] MEDS ORDERED: CLOPIDOGREL 75MG TAB PO SCH (09:00)
[2022-07-24] MEDS ORDERED: METOPROLOL TARTRATE 1 MG/ML 5ML VIAL IV PRN (09:00)
[2022-07-24] MEDS ORDERED: ONDANSETRON 4MG INJ ONE ×2 (09:13→13:22)
[2022-07-24] MEDS ORDERED: ACETAMINOPHEN WITH CODEINE 1 TAB TAB ONE (11:21)
[2022-07-24] MEDS ORDERED: INSULIN HUMULIN R 100 UNIT/ML 3ML SQ SCH (11:30)
[2022-07-24] MEDS ORDERED: ACETAMINOPHEN WITH CODEINE 1 TAB TAB PO PRN (11:30)
[2022-07-24] MEDS ORDERED: ACETAMINOPHEN WITH CODEINE 1 TAB TAB PO ONE (13:00)
[2022-07-24] MEDS ORDERED: ONDANSETRON 4MG TABLET PO ONE (13:30)
[2022-07-24] MEDS ORDERED: ONDANSETRON 4MG INJ IVP SCH (13:30)
[2022-07-24] MEDS ORDERED: ONDANSETRON 4MG TABLET PO SCH (13:30)
[2022-07-24] MEDS ORDERED: ATROPINE 1MG SYG IVP ONE (14:51)
== END 2022-07-24 23:35 | disposition home or self-care (01) ==
LOC: DAH 06:02
PROVIDERS: ATTEND Internal Medicine Cardiovascular Disease
DX: E34.0 Carcinoid syndrome (principal); I87.1 Compression of vein; I73.9 Peripheral vascular disease, unspecified; Z79.01 Long term (current) use of anticoagulants; Z79.899 Other long term (current) drug therapy; Z98.890 Other specified postprocedural states; Z88.0 Allergy status to penicillin; Z88.8 Allergy status to other drugs, medicaments and biological substances
CPT/HCPCS: 85610; 85730; 36415 ×2; 37238; 37239; 36012; 37252; 37253 ×4; 83880; 85347 ×4; 82948 ×2; 75822; C1876 ×2; C1769 ×2; C1894 ×3; C1753; J3010; J7030; J1644 ×2; J2250; J2405 ×3; Q9967 ×2; A4215; A4222; A4221; A4663; A4216; A4606; Q9965; A4223 ×3; 96360; 96361; 99156; 99157; J0461